=== PATIENT | male | born 1990 | race Two or more races ===

== ENCOUNTER 2019-04-06 08:01 | Inpatient (IN) | payer MEDICAID, OTHER ==
[~2019-04-06] VITALS: Ht 167.6 cm; Wt 102.8 kg
[2019-04-06 09:28] LABS: Basophils # (auto) 0.1 uL; Basophils % (auto) 0.4 % (0.0-2.0); Eosinophils # (auto) 0 uL; Hemoglobin 10.4 g/dL (13.5-17.5); Lymphocytes # (auto) 0.3 uL; Lymphocytes % (auto) 2.5 % (10.0-50.0); Mean Corpuscular Hemoglobin 33.3 pg (28.0-32.0); Mean Corpuscular Hgb Conc. 33.5 g/dL (32.0-36.0); Mean Corpuscular Volume 99.4 fL (80.0-100.0); Monocytes # (auto) 0.3 uL; Monocytes % (auto) 2.4 % (0.0-12.0); Neutrophils # (auto) 12.7 uL; Neutrophils % (auto) 94.7 % (37.0-80.0); Nucleated Red Blood Cells % 0.1 %; Platelet Count (auto) 271 10^3/uL (140-450); Red Blood Cells 3.11 10^6/uL (4.5-5.90); Red Cell Distribution Width 14.7 % (11.8-14.3); White Blood Cell 13.4 10^3/uL (4.4-10.8)
[2019-04-06] MEDS ORDERED: METOCLOPRAMIDE HCL 5MG/ml INJ 2ml VIAL ONE (09:37)
[2019-04-06] MEDS ORDERED: KETOROLAC TROMETH 30 MG/ML 1ML VIAL ONE (09:37)
[2019-04-06 09:38] LABS: Albumin 2.8 g/dL (3.4-5.0); Calcium 8.6 mg/dL (8.5-10.1); Potassium 4.2 mmol/L (3.5-5.1)
[2019-04-06 09:42] LABS: BUN/Creatinine Ratio 17.4; Bilirubin, Total 12.1 mg/dL (0.2-1.0); Total Protein 6.6 g/dL (6.4-8.2)
[2019-04-06] MEDS ORDERED: METOCLOPRAMIDE HCL 5MG/ml INJ 2ml VIAL IV ONE ×2 (09:45→10:45)
[2019-04-06] MEDS ORDERED: KETOROLAC TROMETH 30 MG/ML 1ML VIAL IV ONE (09:45)
[2019-04-06] MEDS ORDERED: SODIUM CHLORIDE 0.9% 1,000 ML IV ONE (10:41)
[2019-04-06] MEDS ORDERED: HYDROmorphone HCL 2 MG/ML VL IV ONE (10:45)
[2019-04-06 11:41] LABS: Urine Bacteria NONE SEEN /hpf (None Seen); Urine Blood Negative /uL (Negative); Urine Specific Gravity 1.018 (1.001-1.035); Urine WBC 1 /hpf (0 - 3)
[2019-04-06 11:42] LABS: INR 1.1 (0.9-1.15); Partial Thromboplastin Time 25.4 sec (23.78-33.04); Prothrombin Time 11.7 sec (9.27-12.13)
[2019-04-06] MEDS ORDERED: cefTRIAXone 1GM/50ML D5W 50 ML IV ONE (13:30)
[2019-04-06] MEDS ORDERED: LORazepam 0.5 MG TAB PO PRN (13:45)
[2019-04-06] MEDS ORDERED: PROMETHAZINE HCL 25 MG/ML 1ML IV PRN (13:45)
[2019-04-06] MEDS ORDERED: MORPHINE SULF INJ 2 MG/ML SYRINGE 1ML IV PRN ×2 (13:45→15:45)
[2019-04-06] MEDS ORDERED: MORPHINE SULFATE 4 MG/ML SYR/VIAL IV PRN (13:45)
[2019-04-06] MEDS ORDERED: NITROGLYCERIN 0.4 MG SL TAB SL PRN (13:45)
[2019-04-06] MEDS: FAMOTIDINE (10MG/ML) 2ML VL IV SCH (14:07)
[2019-04-06] MEDS: SODIUM CHLORIDE 0.9% 1,000 ML IV SCH ×2 (14:07→21:47)
[2019-04-06] MEDS: metroNIDAZOLE 500MG/100ML 100 ML IV SCH ×2 (14:38→21:47)
--- NOTE | 2019-04-06 15:30 | NUR ---
Telemetry admit from SHIREEN GARDNER admitted to tele unit. Verbal report received from JOSE JUAN Pham. Patient oriented to Rachel Olmedo RN primary RN, unit, room, bed, and unit policies regarding patient care and visiting hours. Patient now on continuous telemetry monitoring, tele box #[id number]. Telemetry reading on arrival to unit is NSR at 68. Patient on room air with saturation of 95%. Pt weighed by bedscale and encouraged to call if they need something. All questions and concerns addressed, patient verbalized understanding. IV patent, site clear, to right forearm. NPO status maintained. Abd is distended and firm. Pt is c/o abd pain. Pt denies nausea, no emesis.
--- NOTE | 2019-04-06 16:15 | NUR ---
Pt tearful, with c/o severe abd pain. Morphine 2mg given at this time. No other c/o pain or discomfort. No c/o nausea, no emesis. Resp even, unlabored.
[2019-04-06] MEDS ORDERED: FURO40TA4 PO (16:16)
[2019-04-06] MEDS ORDERED: LACT10SO3 PO (16:16)
[2019-04-06] MEDS ORDERED: SPIR50TA5 PO (16:16)
[2019-04-06] MEDS ORDERED: PRED5PAK PO (16:16)
[2019-04-06] MEDS: MORPHINE SULFATE 4 MG/ML SYR/VIAL IV PRN (16:17)
[2019-04-06 16:57] VITALS: BP 147/87
--- NOTE | 2019-04-06 18:00 | NUR ---
Pt resting quietly. No c/o pain or discomfort at this time. NPO status maintained.
[2019-04-06 18:42] LABS: Hemoglobin 10.6 g/dL (13.5-17.5)
--- NOTE | 2019-04-06 19:30 | NUR ---
Opening Shift Note Assumed care of patient, awake and alert X4. Family at bedside. Complaining of pain 6/10 to abdomen. Verbalized he will call when he wants pain meds. No S/S of distress/SOB. Instructed on POC and to call for assist PRN, will continue to monitor for changes Q1hr and PRN. Call light within reach
[2019-04-06 22:00] VITALS: BP 143/81
[2019-04-06] MEDS ORDERED: LORazepam 2MG/ML-1ML VIAL IV PRN (22:30)
[2019-04-07] MEDS: FAMOTIDINE (10MG/ML) 2ML VL IV SCH ×2 (01:45→13:45)
[2019-04-07 01:47] LABS: Hematocrit 28.8 % (41.0-53.0); Hemoglobin 9.7 g/dL (13.5-17.5)
[2019-04-07] MEDS: MORPHINE SULFATE 4 MG/ML SYR/VIAL IV PRN (04:33)
--- NOTE | 2019-04-07 04:41 | NUR ---
Paged hospitalist. Patient crying and moaning in pain. complains of 10/10 to abdomen. States " the morphine is barely taking any edge off. Continuing to monitor
--- NOTE | 2019-04-07 04:45 | NUR ---
Hospitalist Kahlil called. Was upset with me for calling him early, and said patient could wait 15 more minutes. Hardly listened to what i had to say and talked over me then stated he would look at the chart and hung up.Patient had already been in 10/10 pain for over an hour.
[2019-04-07] MEDS ORDERED: KETOROLAC TROMETH 30 MG/ML 1ML VIAL IV ONE (05:30)
--- NOTE | 2019-04-07 05:35 | NUR ---
Finally received an order for toradol 30mg x1. Will follow up with the patient. Continues to rub abdominal area and cry in pain.
[2019-04-07 05:43] VITALS: BP 140/78
[2019-04-07] MEDS: metroNIDAZOLE 500MG/100ML 100 ML IV SCH (05:46)
[2019-04-07] MEDS: SODIUM CHLORIDE 0.9% 1,000 ML IV SCH (06:22)
[2019-04-07 07:39] LABS: Basophils # (auto) 0 uL; Basophils % (auto) 0.2 % (0.0-2.0); Eosinophils # (auto) 0.2 uL; Eosinophils % (auto) 1.2 % (0.0-7.0); Hematocrit 32.8 % (41.0-53.0); Hemoglobin 10.8 g/dL (13.5-17.5); Lymphocytes # (auto) 0.6 uL; Lymphocytes % (auto) 4.4 % (10.0-50.0); Mean Corpuscular Hgb Conc. 32.9 g/dL (32.0-36.0); Mean Corpuscular Volume 100.5 fL (80.0-100.0); Monocytes # (auto) 0.6 uL; Monocytes % (auto) 4.2 % (0.0-12.0); Neutrophils # (auto) 12.5 uL; Platelet Count (auto) 258 10^3/uL (140-450); Red Blood Cells 3.26 10^6/uL (4.5-5.90); Red Cell Distribution Width 14.7 % (11.8-14.3); White Blood Cell 13.9 10^3/uL (4.4-10.8)
[2019-04-07 07:51] LABS: INR 1.18 (0.9-1.15); Prothrombin Time 12.5 sec (9.27-12.13)
[2019-04-07 07:58] LABS: Albumin 2.7 g/dL (3.4-5.0); Calcium 8.5 mg/dL (8.5-10.1); Potassium 3.5 mmol/L (3.5-5.1)
[2019-04-07 08:04] LABS: BUN/Creatinine Ratio 13.8; Bilirubin, Total 10.9 mg/dL (0.2-1.0); Total Protein 6.1 g/dL (6.4-8.2)
[2019-04-07] MEDS: cefTRIAXone 1GM/50ML D5W 50 ML IV SCH (09:24)
[2019-04-07 09:30] VITALS: BP 118/72
[2019-04-07 13:12] VITALS: BP 135/77
[2019-04-07 17:01] VITALS: BP 135/76
--- NOTE | 2019-04-07 17:07 | NUR ---
RESUMPTION OF CARE RECEIVED REPORT FROM JOSE JUAN PASCUAL FOR CONTINUATION OF CARE.
[2019-04-07] MEDS: DOXYCYCLINE 100MG/250ML 250 ML IV SCH (17:46)
--- NOTE | 2019-04-07 18:40 | NUR ---
END OF SHIFT PATIENT RESTING IN BED. NO S/S OF DISTRESS. INSTRUCTED PATIENT TO CALL PRN. BED IN LOWEST LOCKED POSITION, CALL LIGHT WITHIN REACH. ENDORSED CARE TO JOSE JUAN RIVAS.
[2019-04-08] MEDS: FAMOTIDINE (10MG/ML) 2ML VL IV SCH ×2 (01:34→13:34)
[2019-04-08] MEDS: DOXYCYCLINE 100MG/250ML 250 ML IV SCH (03:12)
[2019-04-08 05:36] LABS: Potassium 3.5 mmol/L (3.5-5.1)
[2019-04-08 05:45] LABS: Albumin 2.4 g/dL (3.4-5.0); BUN/Creatinine Ratio 16.1; Bilirubin, Total 10.5 mg/dL (0.2-1.0); Calcium 7.9 mg/dL (8.5-10.1); Total Protein 5.8 g/dL (6.4-8.2)
[2019-04-08 05:53] VITALS: BP 129/80
--- NOTE | 2019-04-08 07:45 | NUR ---
Opening Shift Note Assumed care of patient, patient sleeping. Will continue to monitor for changes Q1hr and PRN. Bed in lowest locked position, call light within reach.
[2019-04-08 09:00] VITALS: BP 130/66
[2019-04-08] MEDS: cefTRIAXone 1GM/50ML D5W 50 ML IV SCH (09:11)
--- NOTE | 2019-04-08 09:48 | NUR ---
PAIN MEDICATION PATIENT STATING MORPHINE DOES NOT WORK FOR HIM AND IS REQUESTING DILAUDID FOR WHEN HE HAS PAIN. PER DR. VITALE, PATIENT TO GET DILAUDID 0.5MG IV Q4H PRN. ORDERS READ BACK AND VERIFIED.
[2019-04-08] MEDS ORDERED: HYDROmorphone HCL 2 MG/ML VL IV PRN (10:00)
[2019-04-08] MEDS ORDERED: predniSONE 5 MG TAB PO SCH (10:00)
--- NOTE | 2019-04-08 12:00 | NUR ---
AT BEDSIDE DR. VITALE AT BEDSIDE DISCUSSING POC WITH PATIENT.
--- NOTE | 2019-04-08 12:02 | NUR ---
STOOL OCCULT BM SENT TO LAB FOR STOOL OCCULT PER ORDER.
[2019-04-08 12:12] VITALS: BP 130/66
[2019-04-08 13:00] VITALS: BP 157/87
--- NOTE | 2019-04-08 13:55 | NUR ---
DISCHARGE Discharge instructions given as ordered. Encourage to follow up with PMD as instructed. All questions and concerns addressed. Patient verbalized understanding. Medication reconciliation form completed and copy given to patient. IV removed with catheter intact, pressure dressing applied. Telemetry unit returned to [facility]. Patient ambulated to vehicle with all personal belongings, accompanied by staff and family member. No distress noted at time of departure.
== END 2019-04-08 13:55 | disposition home or self-care (01) | DRG 282 ==
LOC: EDBD 08:01 → ER 08:09 → TELE 13:45 → TELE-WESTW 15:30
PROVIDERS: ADMIT Internal Medicine; ATTEND Internal Medicine
DX: K85.90 Acute pancreatitis without necrosis or infection, unspecified (principal); N17.0 Acute kidney failure with tubular necrosis; E43 Unspecified severe protein-calorie malnutrition; J18.1 Lobar pneumonia, unspecified organism; D68.9 Coagulation defect, unspecified; E66.01 Morbid (severe) obesity due to excess calories; K70.11 Alcoholic hepatitis with ascites; K74.60 Unspecified cirrhosis of liver; I10 Essential (primary) hypertension; R73.9 Hyperglycemia, unspecified; D53.9 Nutritional anemia, unspecified; K80.20 Calculus of gallbladder without cholecystitis without obstruction; Z82.49 Family history of ischemic heart disease and other diseases of the circulatory system; Z86.61 Personal history of infections of the central nervous system; Z68.36 Body mass index [BMI] 36.0-36.9, adult
CPT/HCPCS: 36415; 71046; 74176; 76705; 80053; 81001; 82140; 82150; 82270; 83690; 83735; 85014; 85018; 85025; 85045; 85610; 85652; 85730; 87040; 87081; 93005; 96374; 96375; G0378; J0696; J1885; J3490

== ENCOUNTER 2019-08-01 08:10 | Inpatient (IN) | payer MEDICAID | END 2019-08-03 17:00 | disposition home or self-care (01) | LOC: ER 08:10 → OVERFLOW 08:11 → WEST WING 10:34 | DX: K85.90 Acute pancreatitis without necrosis or infection, unspecified (principal); E44.0 Moderate protein-calorie malnutrition; K70.31 Alcoholic cirrhosis of liver with ascites; N18.3 Chronic kidney disease, stage 3 (moderate); I12.9 Hypertensive chronic kidney disease with stage 1 through stage 4 chronic kidney disease, or unspecified chronic kidney disease ==

== ENCOUNTER 2019-08-09 09:50 | Emergency (ER) | payer MEDICAID ==
[~2019-08-09] VITALS: Ht 167.6 cm; Wt 83.9 kg
[~2019-08-09 09:50] MED LIST: FURO40TA4 PO; SPIR50TA5 PO
[2019-08-09 10:24] VITALS: BP 125/88
[2019-08-09 10:38] LABS: Basophils # (auto) 0.1 uL; Eosinophils # (auto) 0.1 uL; Hematocrit 36.6 % (41.0-53.0); Hemoglobin 12.2 g/dL (13.5-17.5); Neutrophils % (auto) 75.3 % (37.0-80.0)
[2019-08-09 10:43] LABS: Basophils % (auto) 0.7 % (0.0-2.0); Eosinophils % (auto) 0.7 % (0.0-7.0); Lymphocytes # (auto) 1.9 uL; Lymphocytes % (auto) 18.6 % (10.0-50.0); Mean Corpuscular Hemoglobin 29.6 pg (28.0-32.0); Mean Corpuscular Hgb Conc. 33.4 g/dL (32.0-36.0); Mean Corpuscular Volume 88.7 fL (80.0-100.0); Monocytes # (auto) 0.5 uL; Monocytes % (auto) 4.7 % (0.0-12.0); Neutrophils # (auto) 7.5 uL; Platelet Count (auto) 581 10^3/uL (140-450); Red Blood Cells 4.13 10^6/uL (4.5-5.90); Red Cell Distribution Width 13.7 % (11.8-14.3)
[2019-08-09 11:01] LABS: INR 1.06 (0.9-1.15); Partial Thromboplastin Time 31.1 sec (23.64-32.05)
[2019-08-09 11:04] LABS: Calcium 9.3 mg/dL (8.5-10.1); Potassium 4.4 mmol/L (3.5-5.1)
[2019-08-09 11:10] LABS: BUN/Creatinine Ratio 9.5; Bilirubin, Total 0.6 mg/dL (0.2-1.0); Total Protein 8.9 g/dL (6.4-8.2)
== END 2019-08-09 11:19 | disposition home or self-care (01) ==
LOC: ER 09:50
DX: K74.60 Unspecified cirrhosis of liver (principal)
CPT/HCPCS: 36415; 80053; 82150; 83690; 85025; 85610; 85730

== ENCOUNTER 2019-08-19 17:00 | Inpatient (IN) | payer MEDICAID ==
[~2019-08-19] VITALS: Ht 165.1 cm; Wt 90.0 kg
[2019-08-19] MEDS ORDERED: SODIUM CHLORIDE 0.9% 500 ML IVB ONE (17:30)
[2019-08-19] MEDS ORDERED: HYDROmorphone HCL 2 MG/ML VL IV ONE (17:30)
[2019-08-19] MEDS ORDERED: ONDANSETRON HCL 4 MG/2 ML VIAL IV ONE (17:30)
[2019-08-19 18:32] LABS: Basophils # (auto) 0.1 uL; Basophils % (auto) 1.2 % (0.0-2.0); Eosinophils # (auto) 0.1 uL; Eosinophils % (auto) 0.7 % (0.0-7.0); Hematocrit 34.4 % (41.0-53.0); Hemoglobin 11.6 g/dL (13.5-17.5); Lymphocytes # (auto) 2.5 uL; Lymphocytes % (auto) 21.9 % (10.0-50.0); Mean Corpuscular Hemoglobin 29.4 pg (28.0-32.0); Mean Corpuscular Hgb Conc. 33.9 g/dL (32.0-36.0); Mean Corpuscular Volume 86.7 fL (80.0-100.0); Monocytes # (auto) 0.5 uL; Monocytes % (auto) 4.7 % (0.0-12.0); Neutrophils # (auto) 8.1 uL; Neutrophils % (auto) 71.5 % (37.0-80.0); Platelet Count (auto) 568 10^3/uL (140-450); Red Blood Cells 3.96 10^6/uL (4.5-5.90); Red Cell Distribution Width 13.4 % (11.8-14.3); White Blood Cell 11.3 10^3/uL (4.4-10.8)
[2019-08-19 18:49] LABS: Albumin 4.3 g/dL (3.4-5.0); BUN/Creatinine Ratio 7.8; Calcium 9.6 mg/dL (8.5-10.1); Potassium 3.8 mmol/L (3.5-5.1)
[2019-08-19 18:52] LABS: Bilirubin, Total 0.6 mg/dL (0.2-1.0)
[2019-08-19] MEDS ORDERED: MORPHINE SULF INJ 2 MG/ML SYRINGE 1ML IV PRN (19:15)
[2019-08-19] MEDS ORDERED: NITROGLYCERIN 0.4 MG SL TAB SL PRN (19:15)
[2019-08-19 19:50] VITALS: BP 140/95
--- NOTE | 2019-08-19 19:50 | NUR ---
MS admit from SHIREEN GARD[facility] admitted to tele/MS after SBAR received. Patient oriented to Rosario ch RN, unit, room, bed, and unit policies regarding patient care and visiting hours. Patient weighed by bedscale and encouraged to call if they need something. All questions and concerns addressed, patient verbalized understanding. Note: Came per wheelchair awake alert oriented x 4, not in respiratory distress, placed in the bed comfortably, vital signs checked.
[2019-08-19] MEDS: SODIUM CHLORIDE 0.9% 1,000 ML IV SCH (20:11)
[2019-08-19] MEDS: FAMOTIDINE (10MG/ML) 2ML VL IV SCH (20:57)
[2019-08-19] MEDS: PROMETHAZINE HCL 25 MG/ML 1ML IV PRN (20:57)
[2019-08-19 21:13] LABS: Urine WBC None Seen /hpf (0 - 3)
[2019-08-19 21:36] LABS: Urine Bacteria NONE SEEN /hpf (None Seen); Urine Blood Negative /uL (Negative); Urine Hyaline Cast MOD /lpf (0 - 2); Urine Specific Gravity 1.027 (1.001-1.035)
[2019-08-19] MEDS ORDERED: SPIR100T4 PO (21:36)
[2019-08-19] MEDS ORDERED: PANT40TA2 PO (21:36)
[2019-08-19] MEDS ORDERED: BUME1TAB26 PO (21:36)
[2019-08-19 21:52] VITALS: BP 140/95
[2019-08-19] MEDS: HYDROmorphone HCL 2 MG/ML VL IV PRN (22:30)
--- NOTE | 2019-08-19 22:37 | NUR ---
Nose swab sent to lab. patient is discharged from the [facility] in less than 30 days, same problem.
[2019-08-20] MEDS: HYDROmorphone HCL 2 MG/ML VL IV PRN ×5 (03:32→22:37)
[2019-08-20] MEDS: SODIUM CHLORIDE 0.9% 1,000 ML IV SCH ×3 (03:33→19:34)
[2019-08-20 04:51] VITALS: BP 124/89
[2019-08-20 06:49] LABS: Albumin 3.5 g/dL (3.4-5.0); Potassium 4.1 mmol/L (3.5-5.1)
[2019-08-20 06:51] LABS: BUN/Creatinine Ratio 8.1; Basophils # (auto) 0.1 uL; Basophils % (auto) 0.9 % (0.0-2.0); Eosinophils # (auto) 0.1 uL; Eosinophils % (auto) 1.5 % (0.0-7.0); Hematocrit 30.7 % (41.0-53.0); Hemoglobin 10.5 g/dL (13.5-17.5); Lymphocytes % (auto) 29.6 % (10.0-50.0); Mean Corpuscular Hemoglobin 29.9 pg (28.0-32.0); Mean Corpuscular Hgb Conc. 34.4 g/dL (32.0-36.0); Mean Corpuscular Volume 86.8 fL (80.0-100.0); Monocytes # (auto) 0.4 uL; Monocytes % (auto) 6.1 % (0.0-12.0); Neutrophils # (auto) 4.3 uL; Neutrophils % (auto) 61.9 % (37.0-80.0); Nucleated Red Blood Cells % 0.1 %; Platelet Count (auto) 421 10^3/uL (140-450); Red Blood Cells 3.53 10^6/uL (4.5-5.90); Red Cell Distribution Width 13.8 % (11.8-14.3); White Blood Cell 6.9 10^3/uL (4.4-10.8)
[2019-08-20 06:53] LABS: Bilirubin, Total 0.5 mg/dL (0.2-1.0); Total Protein 7.3 g/dL (6.4-8.2)
--- NOTE | 2019-08-20 07:20 | NUR ---
Opening Shift Note Report received assumed care of patient, asleep, No S/S of distress/SOB or pain.will continue to monitor for changes Q1hr and PRN.
--- NOTE | 2019-08-20 07:39 | NUR ---
Report given to Becca Ferrara, patient is resting no resp. distress.
[2019-08-20 09:00] VITALS: BP 116/69
[2019-08-20] MEDS: FAMOTIDINE (10MG/ML) 2ML VL IV SCH ×2 (10:02→21:31)
[2019-08-20] MEDS: PROMETHAZINE HCL 25 MG/ML 1ML IV PRN ×2 (10:03→14:19)
--- NOTE | 2019-08-20 11:00 | NUR ---
FAMILY VISITING AT BEDSIDE
--- NOTE | 2019-08-20 11:15 | NUR ---
MD VISIT DR. BOO HERE TO SEE AND EXAMINED PATIENT,EXPLAIN DISEASE PROCESS AND PLAN OF CARE TO PATIENT ,EXPLAIN DISEASE PROCESS IN DETAIL TO PATIENT MOTHER.RECEIVED ORDERS.
[2019-08-20] MEDS ORDERED: LEVOFLOXACIN 500MG 100 ML IV ONE (11:30)
[2019-08-20] MEDS ORDERED: traMADol HCL 50 MG TAB PO PRN (11:30)
[2019-08-20 13:00] VITALS: BP 120/75
--- NOTE | 2019-08-20 15:20 | NUR ---
MD VISIT DR. STEWARD HERE TO SEE AND EXAMINED PATIENT RECEIVED ORDER,TO [facility] MEDICAL RECORDS FROM [facility]
--- NOTE | 2019-08-20 16:20 | NUR ---
FAXED REQUEST FOR MEDICAL RECORDS TO [facility]
[2019-08-20 17:00] VITALS: BP 119/76
--- NOTE | 2019-08-20 18:10 | NUR ---
REQUESTING TO INCREASE DILAUDID TO 2 MG IV,CALLED HOSPITALIST [facility],SPOKED TO ASHLEY PEREZ,RECEIVED ORDER,SEE ORDER WRITTEN FOR CHANGES OF PAIN MEDICATION.
--- NOTE | 2019-08-20 19:10 | NUR ---
REPORT GIVEN TO NOC SHIFT RN FOR CONTINUATION OF CARE STATUS UNCHANGED.
--- NOTE | 2019-08-20 19:25 | NUR ---
Opening Shift Note Assumed care of patient, awake and alert x 4. No S/S of distress/SOB. Bed is in lowest position and call light is within reach. Board updated. NS infusing at 125 mls/hr. Instructed on POC and to call for assist PRN, will continue to monitor for changes Q1hr and PRN.
[2019-08-20] MEDS: HYDROcodone-ACET 7.5/325MG TAB PO PRN (19:58)
[2019-08-20 22:00] VITALS: BP 120/70
--- NOTE | 2019-08-21 00:01 | NUR ---
Rosemarying hospitalist has noticeable ascites that he states is severely increased since he had 4 liters of fluid of taken out via paracentesis on Monday when he was a patient at [facility]. Fluid therapy stopped. Patient is currently NPO. Calling to notify of change in patient status and to see if he wants to provide any further orders.
--- NOTE | 2019-08-21 00:38 | NUR ---
Spoke to VALERIE Guillory. Continue fluid therapy. Order: Abdominal ultrasound.
[2019-08-21] MEDS: HYDROmorphone HCL 2 MG/ML VL IV PRN ×5 (03:15→21:00)
[2019-08-21] MEDS: SODIUM CHLORIDE 0.9% 1,000 ML IV SCH (03:15)
[2019-08-21 05:00] VITALS: BP 105/62
[2019-08-21 06:24] LABS: Basophils # (auto) 0.1 uL; Basophils % (auto) 0.8 % (0.0-2.0); Eosinophils # (auto) 0.1 uL; Hematocrit 30.9 % (41.0-53.0); Hemoglobin 10.6 g/dL (13.5-17.5); Lymphocytes # (auto) 1.9 uL; Lymphocytes % (auto) 27.2 % (10.0-50.0); Mean Corpuscular Hgb Conc. 34.2 g/dL (32.0-36.0); Mean Corpuscular Volume 87.8 fL (80.0-100.0); Monocytes # (auto) 0.6 uL; Monocytes % (auto) 8.5 % (0.0-12.0); Neutrophils # (auto) 4.4 uL; Neutrophils % (auto) 61.5 % (37.0-80.0); Platelet Count (auto) 372 10^3/uL (140-450); Red Blood Cells 3.52 10^6/uL (4.5-5.90); Red Cell Distribution Width 13.7 % (11.8-14.3); White Blood Cell 7.2 10^3/uL (4.4-10.8)
[2019-08-21 06:32] LABS: Potassium 4.2 mmol/L (3.5-5.1)
[2019-08-21 06:45] LABS: BUN/Creatinine Ratio 10.7; Bilirubin, Total 0.8 mg/dL (0.2-1.0); Calcium 8.4 mg/dL (8.5-10.1); Total Protein 6.7 g/dL (6.4-8.2)
[2019-08-21 09:00] VITALS: BP 120/70
[2019-08-21] MEDS: FAMOTIDINE (10MG/ML) 2ML VL IV SCH ×2 (09:16→20:57)
[2019-08-21] MEDS: LEVOFLOXACIN 500MG 100 ML IV SCH (09:17)
[2019-08-21] MEDS: HYDROcodone-ACET 7.5/325MG TAB PO PRN ×2 (09:17→15:06)
[2019-08-21] MEDS ORDERED: SODIUM CHLORIDE 0.9% 1,000 ML IV SCH (10:45)
[2019-08-21] MEDS: PROMETHAZINE HCL 25 MG/ML 1ML IV PRN (12:12)
--- NOTE | 2019-08-21 12:17 | NUR ---
IVF STOPPED PER DR GARNICA
[2019-08-21 13:07] VITALS: BP 130/86
[2019-08-21 17:30] VITALS: BP 113/70
[2019-08-21 22:00] VITALS: BP 123/90
[2019-08-22] MEDS: HYDROmorphone HCL 2 MG/ML VL IV PRN ×2 (02:29→11:45)
[2019-08-22] MEDS: HYDROcodone-ACET 7.5/325MG TAB PO PRN (04:48)
[2019-08-22 05:00] VITALS: BP 125/68
--- NOTE | 2019-08-22 06:04 | NUR ---
PT WANTING RX FOR HOME DILAUDID AND HOME NORCO.ASKED RN TO WRITE OUT PRESCRIPTIONS FOR HIM;INFORMED PATIENT THAT THAT WAS NOT LEGALLY POSSIBLE. SUGGESTED HE SPEAK WITH MD ABOUT HIS CONCERNS.
[2019-08-22 06:27] LABS: BUN/Creatinine Ratio 11.9; Calcium 8.7 mg/dL (8.5-10.1); Potassium 4.1 mmol/L (3.5-5.1)
--- NOTE | 2019-08-22 07:30 | NUR ---
Opening Shift Note Assumed care of patient, awake and alert. No S/S of distress/SOB or pain.Bed in lowest position, breaks locked, side rail up x2, call light with in reach. Instructed on POC and to call for assist PRN, will continue to monitor for changes Q1hr and PRN.
[2019-08-22 08:20] VITALS: BP 117/74
[2019-08-22 09:00] VITALS: BP 117/74
[2019-08-22] MEDS: FAMOTIDINE (10MG/ML) 2ML VL IV SCH (10:23)
[2019-08-22] MEDS: LEVOFLOXACIN 500MG 100 ML IV SCH (10:23)
--- NOTE | 2019-08-22 11:45 | NUR ---
PATIENT MEDICATED FOR PRIMARY RN PATIENT C/O 08/29 ABDOMINAL PAIN, PAIN MEDICATION GIVEN PER MD ORDERS.
[2019-08-22 12:59] VITALS: BP 120/75
[2019-08-22 13:00] VITALS: BP 120/75
--- NOTE | 2019-08-22 14:30 | NUR ---
Discharge instructions given as ordered. Encourage to follow up with PMD as instructed. All questions and concerns addressed. Patient verbalized understanding. Medication reconciliation form completed and copy given to patient. No home medications held in Pharmacy and none returned to patient, and no needed vaccines given. IV removed with catheter intact, pressure dressing applied. Patient ambulating independent to elevator with all personal belongings, accompanied by family member, steady gait noted. Patient declined assistance from staff . No distress noted at time of departure.
== END 2019-08-22 14:30 | disposition home or self-care (01) | DRG 282 ==
LOC: EDUNIT# 17:00 → EDBD 17:00 → ER 17:27 → CENTRAL 17:28
PROVIDERS: ADMIT Nurse Practitioner Acute Care; ATTEND Internal Medicine
DX: K85.90 Acute pancreatitis without necrosis or infection, unspecified (principal); N17.0 Acute kidney failure with tubular necrosis; R65.10 Systemic inflammatory response syndrome (SIRS) of non-infectious origin without acute organ dysfunction; K70.31 Alcoholic cirrhosis of liver with ascites; N18.3 Chronic kidney disease, stage 3 (moderate); K86.1 Other chronic pancreatitis; K86.3 Pseudocyst of pancreas; Z79.899 Other long term (current) drug therapy; E66.9 Obesity, unspecified; Z68.33 Body mass index [BMI] 33.0-33.9, adult; Z80.9 Family history of malignant neoplasm, unspecified; Z82.49 Family history of ischemic heart disease and other diseases of the circulatory system; Z53.20 Procedure and treatment not carried out because of patient's decision for unspecified reasons
CPT/HCPCS: 36415; 74176; 76705; 80048; 80053; 81001; 82150; 83690; 85025; 87081; 94761; 96361; 96365; 96375; G0378; J1956; J2405; J3490

== ENCOUNTER 2019-09-25 14:52 | Inpatient (IN) | payer MEDICAID ==
[~2019-09-25] VITALS: Ht 172.7 cm; Wt 80.1 kg
[~2019-09-25 14:52] MED LIST changes: +BUME1TAB26 PO; +PANT40TA2 PO; +SPIR100T4 PO
[2019-09-25] MEDS ORDERED: MORPHINE SULF INJ 2 MG/ML SYRINGE 1ML IV ONE (15:15)
[2019-09-25] MEDS: PROMETHAZINE HCL 25 MG/ML 1ML IV PRN (15:22)
[2019-09-25 15:26] LABS: Basophils # (auto) 0.1 uL; Eosinophils # (auto) 0.1 uL; Nucleated Red Blood Cells % 0.1 %
[2019-09-25 15:28] LABS: Basophils % (auto) 0.4 % (0.0-2.0); Eosinophils % (auto) 0.3 % (0.0-7.0); Hematocrit 38.3 % (41.0-53.0); Hemoglobin 12.5 g/dL (13.5-17.5); Lymphocytes # (auto) 5.3 uL; Lymphocytes % (auto) 25.2 % (10.0-50.0); Mean Corpuscular Hemoglobin 28.3 pg (28.0-32.0); Mean Corpuscular Hgb Conc. 32.7 g/dL (32.0-36.0); Mean Corpuscular Volume 86.6 fL (80.0-100.0); Monocytes % (auto) 4.7 % (0.0-12.0); Neutrophils # (auto) 14.6 uL; Neutrophils % (auto) 69.4 % (37.0-80.0); Platelet Count (auto) 695 10^3/uL (140-450); Red Blood Cells 4.43 10^6/uL (4.5-5.90); Red Cell Distribution Width 13.8 % (11.8-14.3)
[2019-09-25 15:45] LABS: Albumin 2.7 g/dL (3.4-5.0); Calcium 8.5 mg/dL (8.5-10.1); INR 1.1 (0.9-1.15); Magnesium 2.1 mg/dL (1.6-2.6); Partial Thromboplastin Time 29.5 sec (23.64-32.05); Potassium 3.9 mmol/L (3.5-5.1)
[2019-09-25 15:50] LABS: BUN/Creatinine Ratio 11.7; Bilirubin, Total 0.5 mg/dL (0.2-1.0); Total Protein 8.1 g/dL (6.4-8.2)
[2019-09-25] MEDS ORDERED: HYDROmorphone HCL 2 MG/ML VL IV ONE ×2 (16:00→19:00)
[2019-09-25] MEDS ORDERED: cefTRIAXone 1GM/50ML D5W 50 ML IV ONE (17:30)
[2019-09-25] MEDS ORDERED: ACETAMINOPHEN 325 MG TAB PO PRN (21:00)
[2019-09-25] MEDS ORDERED: LEVOFLOXACIN 500MG 100 ML IV ONE (21:00)
[2019-09-25] MEDS: SODIUM CHLORIDE 0.9% 1,000 ML IV SCH (22:32)
[2019-09-25 22:40] VITALS: BP 151/81
--- NOTE | 2019-09-25 22:40 | NUR ---
MS admit from SHIRE[facility] GARD[facility] admitted to tele/MS after SBAR received. Patient oriented to JOSE A VILLARREAL, RN primary RN, unit, room, bed, and unit policies regarding patient care and visiting hours. Patient weighed by bedscale and encouraged to call if they need something. All questions and concerns addressed, patient verbalized understanding. Patient complain of pain will administer prn medication.
[2019-09-25] MEDS: MORPHINE SULFATE 4 MG/ML SYR/VIAL IV PRN (23:23)
[2019-09-25] MEDS: TEMAZEPAM 15 MG CAP PO PRN (23:23)
[2019-09-25] MEDS: ONDANSETRON HCL 4 MG/2 ML VIAL IV PRN (23:58)
[2019-09-26] MEDS ORDERED: MULTTAB PO
[2019-09-26] MEDS ORDERED: FURO1TAB31 PO
[2019-09-26] MEDS ORDERED: TRAM50TA2 PO
[2019-09-26] MEDS ORDERED: SPIR100T4 PO
[2019-09-26] MEDS ORDERED: SIME80CH6 PO
[2019-09-26] MEDS ORDERED: FAM20T PO
[2019-09-26] MEDS ORDERED: AMIL5TAB PO
[2019-09-26] MEDS ORDERED: CIPR-173 PO
[2019-09-26] MEDS ORDERED: ONDA-144 PO
[2019-09-26] MEDS ORDERED: LANS15CA21 PO
[2019-09-26] MEDS ORDERED: THIA100T5 PO
[2019-09-26] MEDS ORDERED: LACT10SO60 PO
[2019-09-26] MEDS ORDERED: PANC12002 PO
[2019-09-26] MEDS ORDERED: PANT1INJ3 PO
[2019-09-26] MEDS ORDERED: SULF-92 PO
[2019-09-26] MEDS ORDERED: KETOROLAC TROMETH 30 MG/ML 1ML VIAL IV ONE (01:00)
[2019-09-26 05:00] VITALS: BP 114/69
[2019-09-26] MEDS: ONDANSETRON HCL 4 MG/2 ML VIAL IV PRN ×3 (05:30→21:39)
[2019-09-26 06:49] LABS: Basophils # (auto) 0 uL; Basophils % (auto) 0.5 % (0.0-2.0); Eosinophils # (auto) 0.1 uL; Eosinophils % (auto) 0.8 % (0.0-7.0); Hematocrit 32.4 % (41.0-53.0); Hemoglobin 11.1 g/dL (13.5-17.5); Lymphocytes # (auto) 1.9 uL; Lymphocytes % (auto) 18.1 % (10.0-50.0); Mean Corpuscular Hemoglobin 29.6 pg (28.0-32.0); Mean Corpuscular Hgb Conc. 34.2 g/dL (32.0-36.0); Mean Corpuscular Volume 86.5 fL (80.0-100.0); Monocytes # (auto) 0.6 uL; Monocytes % (auto) 5.6 % (0.0-12.0); Nucleated Red Blood Cells % 0.2 %; Platelet Count (auto) 421 10^3/uL (140-450); Red Blood Cells 3.74 10^6/uL (4.5-5.90); Red Cell Distribution Width 13.4 % (11.8-14.3); White Blood Cell 10.6 10^3/uL (4.4-10.8)
[2019-09-26 07:08] LABS: Albumin 2.2 g/dL (3.4-5.0); Calcium 8.4 mg/dL (8.5-10.1); Potassium 4.5 mmol/L (3.5-5.1)
[2019-09-26 07:17] LABS: BUN/Creatinine Ratio 13.4; Bilirubin, Total 0.6 mg/dL (0.2-1.0); Total Protein 7.1 g/dL (6.4-8.2)
[2019-09-26 08:00] VITALS: BP 151/81
[2019-09-26 09:00] VITALS: BP 113/75
[2019-09-26] MEDS: SODIUM CHLORIDE 0.9% 1,000 ML IV SCH (09:30)
[2019-09-26] MEDS: MORPHINE SULFATE 4 MG/ML SYR/VIAL IV PRN (09:46)
--- NOTE | 2019-09-26 10:56 | NUR ---
PATIENT SITTING ON THE FLOOR IN THE BATHROOM. SAID HE CAN'T WALK BACK TO THE BED. PHYSICAL THERAPY CAME TO ROOM TO ASSIST PATIENT BACK TO BED. PATIENT STOOD UP WALKED BACK TO THE BED ON HIS OWN. HE STATES HE WANTS DILAUDID. THAT'S THE ONLY MEDICATION THAT HELPS HIM.
[2019-09-26] MEDS ORDERED: LACTATED RINGER'S 1,000 ML IV SCH (11:15)
[2019-09-26] MEDS: HYDROmorphone HCL 2 MG/ML VL IV PRN ×7 (11:24→23:52)
[2019-09-26] MEDS: PROMETHAZINE HCL 25 MG/ML 1ML IV PRN ×4 (11:54→23:52)
[2019-09-26 13:00] VITALS: BP 128/88
[2019-09-26] MEDS: LACTATED RINGER'S 1,000 ML IV SCH ×2 (13:07→17:32)
[2019-09-26 17:00] VITALS: BP 118/76
--- NOTE | 2019-09-26 20:20 | NUR ---
RECEIVE IN BED IS ALERT ORIENTATED IS REQUIRING ANALGESIC [id number]
[2019-09-26] MEDS: LEVOFLOXACIN 500MG 100 ML IV SCH (20:50)
[2019-09-26 22:39] VITALS: BP 131/78
[2019-09-27] MEDS: HYDROmorphone HCL 2 MG/ML VL IV PRN ×7 (04:21→21:21)
[2019-09-27] MEDS: LACTATED RINGER'S 1,000 ML IV SCH ×3 (04:22→15:17)
[2019-09-27] MEDS: PROMETHAZINE HCL 25 MG/ML 1ML IV PRN ×2 (04:22→21:22)
[2019-09-27 05:58] VITALS: BP 110/66
[2019-09-27 07:41] LABS: Calcium 7.8 mg/dL (8.5-10.1); Potassium 4.2 mmol/L (3.5-5.1)
[2019-09-27 07:43] LABS: BUN/Creatinine Ratio 16.2
[2019-09-27 08:00] VITALS: BP 110/63
[2019-09-27 09:00] VITALS: BP 110/63
[2019-09-27] MEDS ORDERED: BUME1TAB28 PO (09:57)
--- NOTE | 2019-09-27 09:57 | NUR ---
Med rec home meds [facility] with patient and [facility]
[2019-09-27 13:00] VITALS: BP 110/71
--- NOTE | 2019-09-27 14:16 | NUR ---
DR. STEWARD WAS IN TO SEE PT AND MD LEFT NEW ORDERS. PT'S AND KIDS WERE VISITING AT THE TIME.
--- NOTE | 2019-09-27 16:10 | NUR ---
PT MOVED FROM 298 A TO RM 298 B PER BED IN A STABLE CONDITION.
[2019-09-27 17:00] VITALS: BP 118/79
[2019-09-27] MEDS: ONDANSETRON HCL 4 MG/2 ML VIAL IV PRN (18:09)
--- NOTE | 2019-09-27 18:45 | NUR ---
PT SITTING IN BED COMFORTABLY AT THIS TIME. NO C/O NAUSEA AND PT'S PAIN LESS THAN BEFORE 05/29 AND PT STATED THAT THE PAIN MED JUST TAKE THE EDGE OUT OF THE PAIN BUT IS ALWAYS THERE. PT'S BROTHER VISITING AT THIS TIME.
--- NOTE | 2019-09-27 20:20 | NUR ---
RECEIVE IN BEDIS NPO STATES HE STILL HAVE LOTS OF PAIN
[2019-09-27] MEDS: LEVOFLOXACIN 500MG 100 ML IV SCH (21:20)
[2019-09-27 22:00] VITALS: BP 115/67
[2019-09-28] MEDS: LACTATED RINGER'S 1,000 ML IV SCH ×2 (00:32→12:17)
[2019-09-28] MEDS: HYDROmorphone HCL 2 MG/ML VL IV PRN ×9 (00:50→22:25)
[2019-09-28 05:49] LABS: Basophils # (auto) 0 uL; Basophils % (auto) 0.6 % (0.0-2.0); Hemoglobin 8.1 g/dL (13.5-17.5); Lymphocytes # (auto) 1.3 uL; Monocytes # (auto) 0.6 uL; Nucleated Red Blood Cells % 0.1 %
[2019-09-28 05:51] LABS: Eosinophils # (auto) 0 uL; Eosinophils % (auto) 0.7 % (0.0-7.0); Hematocrit 23.7 % (41.0-53.0); Lymphocytes % (auto) 19.9 % (10.0-50.0); Mean Corpuscular Hemoglobin 29.6 pg (28.0-32.0); Mean Corpuscular Hgb Conc. 34.2 g/dL (32.0-36.0); Mean Corpuscular Volume 86.6 fL (80.0-100.0); Monocytes % (auto) 9.3 % (0.0-12.0); Neutrophils # (auto) 4.5 uL; Neutrophils % (auto) 69.5 % (37.0-80.0); Platelet Count (auto) 278 10^3/uL (140-450); Red Blood Cells 2.74 10^6/uL (4.5-5.90); Red Cell Distribution Width 13.2 % (11.8-14.3); White Blood Cell 6.5 10^3/uL (4.4-10.8)
[2019-09-28 05:54] VITALS: BP 109/58
[2019-09-28 06:08] LABS: Calcium 7.6 mg/dL (8.5-10.1); Potassium 3.7 mmol/L (3.5-5.1)
[2019-09-28 06:14] LABS: BUN/Creatinine Ratio 15.9
--- NOTE | 2019-09-28 07:30 | NUR ---
Opening Shift Note Assumed care of patient, resting comfortably. No S/S of distress/SOB or pain on room air. Instructed on POC and to call for assist PRN, will continue to monitor for changes Q1hr and PRN. Bed in low and locked position, rails up x2, no-slip socks on.
[2019-09-28 09:15] VITALS: BP 120/69
[2019-09-28] MEDS: ONDANSETRON HCL 4 MG/2 ML VIAL IV PRN ×4 (09:56→22:26)
--- NOTE | 2019-09-28 11:35 | NUR ---
DR STEWARD AT BEDSIDE DECREASED LR RATE TO 60ML/H, PENDING PARACENTESIS ON MONDAY.
--- NOTE | 2019-09-28 11:57 | NUR ---
Nutrition Assessment Notes please see attached link for complete assessment Est. Needs BW 78 [id number] kcal (23-25 kcal/kgBW), 78-93 gms pro (1.0-1.2 gms/kgBW r/t severe hypoalb). Will continue to monitor pertinent labs and reassess nutrient need prn Addendum: 09/28/19 at [address] Amended: Links added.
[2019-09-28] MEDS: PROMETHAZINE HCL 25 MG/ML 1ML IV PRN ×3 (12:14→20:22)
[2019-09-28 13:51] VITALS: BP 127/87
--- NOTE | 2019-09-28 16:30 | NUR ---
PAIN REASSESSMENT PATIENT STATES THAT THE PAIN MEDICATION HELPS BUT ONLY FOR ONE HOUR AND THAT HE STILL FEELS HE NEEDS IT EVERY 2 HOURS.
[2019-09-28 17:12] VITALS: BP 119/81
--- NOTE | 2019-09-28 19:00 | NUR ---
Opening Shift Note Assumed care of patient, awake and alert.Family on bedside. No S/S of distress/SOB or pain. Instructed on POC and to call for assist PRN, will continue to monitor for changes Q1hr and PRN.
[2019-09-28] MEDS ORDERED: CEFOTAXIME SODIUM 1 GM in D5W 5% 50 ML IV ONE (20:00)
[2019-09-28] MEDS: LEVOFLOXACIN 500MG 100 ML IV SCH (21:21)
[2019-09-28 22:00] VITALS: BP 112/65
[2019-09-28] MEDS ORDERED: cefTAZidime 1 GM VL ONE (23:17)
[2019-09-28] MEDS: cefTAZidime 1 GM in SODIUM CHL 0.9% 50 ML IV SCH (23:31)
[2019-09-29] MEDS: HYDROmorphone HCL 2 MG/ML VL IV PRN ×12 (00:26→23:40)
[2019-09-29] MEDS: PROMETHAZINE HCL 25 MG/ML 1ML IV PRN ×6 (00:27→21:40)
[2019-09-29] MEDS: ONDANSETRON HCL 4 MG/2 ML VIAL IV PRN ×6 (02:32→23:40)
[2019-09-29] MEDS: LACTATED RINGER'S 1,000 ML IV SCH ×2 (04:25→21:03)
[2019-09-29 05:56] VITALS: BP 116/61
[2019-09-29] MEDS ORDERED: CEFOTAXIME SODIUM 1 GM in D5W 5% 50 ML IV SCH (06:00)
[2019-09-29 06:47] LABS: Potassium 3.5 mmol/L (3.5-5.1)
[2019-09-29 06:51] LABS: INR 1.23 (0.9-1.15); Partial Thromboplastin Time 34.4 sec (23.64-32.05)
[2019-09-29 06:54] LABS: Albumin 1.7 g/dL (3.4-5.0); BUN/Creatinine Ratio 14.5; Bilirubin, Total 0.8 mg/dL (0.2-1.0); Magnesium 1.6 mg/dL (1.6-2.6); Phosphorus 3.8 mg/dL (2.5-4.90)
[2019-09-29 07:00] LABS: Basophils # (auto) 0 uL; Basophils % (auto) 0.4 % (0.0-2.0); Eosinophils # (auto) 0 uL; Eosinophils % (auto) 0.4 % (0.0-7.0); Hemoglobin 8.7 g/dL (13.5-17.5); Lymphocytes % (auto) 14.8 % (10.0-50.0); Mean Corpuscular Hemoglobin 29.1 pg (28.0-32.0); Mean Corpuscular Hgb Conc. 33.6 g/dL (32.0-36.0); Mean Corpuscular Volume 86.7 fL (80.0-100.0); Monocytes # (auto) 0.7 uL; Monocytes % (auto) 11.3 % (0.0-12.0); Neutrophils # (auto) 4.7 uL; Neutrophils % (auto) 73.1 % (37.0-80.0); Platelet Count (auto) 292 10^3/uL (140-450); Red Cell Distribution Width 13.2 % (11.8-14.3); White Blood Cell 6.5 10^3/uL (4.4-10.8)
--- NOTE | 2019-09-29 07:30 | NUR ---
Opening Shift Note Assumed care of patient, awake and alert. No S/S of distress/SOB on room air but complains of pain, will medicate as ordered. Instructed on POC and to call for assist PRN, will continue to monitor for changes Q1hr and PRN. Bed in low and locked position, rails up x2, no-slip socks on.
[2019-09-29 09:00] VITALS: BP 105/62
[2019-09-29] MEDS: cefTAZidime 1 GM in SODIUM CHL 0.9% 50 ML IV SCH ×2 (10:49→22:59)
[2019-09-29 13:00] VITALS: BP 117/68
--- NOTE | 2019-09-29 14:29 | NUR ---
PATIENT REQUESTING TO GO OFF UNIT TO AMBULATE WITH HIS BROTHER, INFORMED THAT HE IS ALLOWED TO AMBULATE UPSTAIRS BUT HE HAS TO SIGN AN AMA TO GO DOWNSTAIRS WHERE HE CANNOT BE MONITORED. PATIENT INFORMED OF RISKS OF LEAVING THE UNIT, INSTRUCTED TO RETURN NO LONGER THAN 20 MINUTES, PATIENT VERBALIZES UNDERSTANDING.
[2019-09-29 16:39] VITALS: BP 113/70
--- NOTE | 2019-09-29 19:25 | NUR ---
Opening Shift Note Assumed care of patient, awake and alert. No S/S of distress/SOB. The patient c/o severe 9/10 abdominal pain. Will treat with PRN pain medication. Instructed on POC and to call for assist PRN, will continue to monitor for changes Q1hr and PRN.
[2019-09-29] MEDS: LEVOFLOXACIN 500MG 100 ML IV SCH (21:03)
[2019-09-29 22:00] VITALS: BP 106/59
[2019-09-30] VITALS (14 sets, daily range): BP systolic 97–118; BP diastolic 53–75
[2019-09-30] MEDS: PROMETHAZINE HCL 25 MG/ML 1ML IV PRN ×5 (01:40→20:43)
[2019-09-30] MEDS: HYDROmorphone HCL 2 MG/ML VL IV PRN ×10 (01:40→23:07)
[2019-09-30] MEDS: ONDANSETRON HCL 4 MG/2 ML VIAL IV PRN ×5 (03:40→23:07)
[2019-09-30 05:53] LABS: Basophils # (auto) 0 uL; Basophils % (auto) 0.3 % (0.0-2.0); Eosinophils # (auto) 0 uL; Eosinophils % (auto) 0.5 % (0.0-7.0); Hematocrit 24.9 % (41.0-53.0); Hemoglobin 8.5 g/dL (13.5-17.5); Lymphocytes # (auto) 1.2 uL; Lymphocytes % (auto) 18.3 % (10.0-50.0); Mean Corpuscular Hemoglobin 29.6 pg (28.0-32.0); Mean Corpuscular Hgb Conc. 34.3 g/dL (32.0-36.0); Mean Corpuscular Volume 86.3 fL (80.0-100.0); Monocytes # (auto) 0.8 uL; Monocytes % (auto) 12.6 % (0.0-12.0); Neutrophils # (auto) 4.3 uL; Neutrophils % (auto) 68.3 % (37.0-80.0); Nucleated Red Blood Cells % 0.1 %; Platelet Count (auto) 273 10^3/uL (140-450); Red Blood Cells 2.88 10^6/uL (4.5-5.90); Red Cell Distribution Width 13.5 % (11.8-14.3); White Blood Cell 6.3 10^3/uL (4.4-10.8)
[2019-09-30 06:00] LABS: Albumin 1.6 g/dL (3.4-5.0); Calcium 7.4 mg/dL (8.5-10.1); Magnesium 1.6 mg/dL (1.6-2.6); Potassium 3.6 mmol/L (3.5-5.1)
[2019-09-30 06:05] LABS: BUN/Creatinine Ratio 13.8; Bilirubin, Total 0.7 mg/dL (0.2-1.0); Phosphorus 3.6 mg/dL (2.5-4.90); Total Protein 5.9 g/dL (6.4-8.2)
--- NOTE | 2019-09-30 07:33 | NUR ---
Opening Shift Note Assumed care of patient, awake and alert. No S/S of distress/SOB. Patient rated pain at a 9/10. Bed in lowest and locked position with side rails up x2 and call light in reach. Instructed on POC and to call for assist PRN, will continue to monitor for changes Q1hr and PRN.
[2019-09-30] MEDS: cefTAZidime 1 GM in SODIUM CHL 0.9% 50 ML IV SCH ×2 (10:11→23:07)
--- NOTE | 2019-09-30 11:00 | NUR ---
PARACENTESIS PERFORMED PER DR SALMON IN [place] [facility] - SEE FLOW SHEET FOR VS. PAT AMARILIS PROCEDURE WELL WITHOUT C/O PAIN OR DIZZINESS. CATHETER REMOVED FROM RLQ, MILD MANUAL PRESSURE APPLIED - SM AMT RED OLENA NOTED -LG STERILE BANDAID APPLIED. 5150 ML YELLOW LIQ REMOVED FROM PATIENT - NO FLUID TESTING NEEDED. PROCEDURE STARTED AT 1100 AND CONCLUDED AT 1143. PATIENT RETURNED TO ROOM PER IN STABLE CONDITION.
[2019-09-30] MEDS: LACTATED RINGER'S 1,000 ML IV SCH (13:45)
--- NOTE | 2019-09-30 14:50 | NUR ---
Nutrition Follow-up Notes Wt.: 79.2 kg as of yesterday. Pt's asleep, no immediate family member at bedside during rounds this morning. Pt's no signs of distress noted earlier, noted pt's s/p Paracentesis, remains NPO, no diet order yet at this time. Est. Needs BW 78 [id number] kcal (23-25 kcal/kgBW), 78-93 gms pro (1.0-1.2 gms/kgBW r/t severe hypoalb). Will continue to monitor pertinent labs and reassess nutrient need prn Labs: Na 135 L, Ca 7.4 L, ALT 15 L, ALP 1296 H, Tpro 5.9 L, Alb 2.2 L; Amylase/Lipase 290/885 H Skin: Junito scale 19, low risk, skin intact per endodontic assistant. GI: Pt had 1 BM yesterday per endodontic assistant. PES: Increased nutrient needs r/t altered GI functions aeb cirrhosis, pancreatitis, abdominal pain, severe hypoalbuminemia, NPO. Altered nutrition related lab values r/t current/chronic medical condition aeb elev BUN pancreatic enzymes and hypocalcemia, svere hypoalb Will continue to monitor NPO status, skin status, pertinent labs and weight trend. F/u in 2 to 3 days. Rec.: 1.) If still NPO with Albumin, Prealbumin continue trending down, consider PN support if medically appropriate. 2.) Advance gradually to oral diet when medically appropriate. 3.) Refer pt to CDE/RD for further nutrition education and weight monitoring upon discharge. 4.) Continue current plan of care.
[2019-09-30] MEDS ORDERED: MAGNESIUM SULFATE 1GM/100ML 100 ML IV ONE (15:00)
--- NOTE | 2019-09-30 19:26 | NUR ---
Opening Shift Note Assumed care of patient, awake and alert x 4. No S/S of distress/SOB. Bed is in lowest position and locked. Call light within reach. LR infusing at 60 mls/hr. Instructed on POC and to call for assist PRN, will continue to monitor for changes Q1hr and PRN.
[2019-09-30] MEDS: LEVOFLOXACIN 500MG 100 ML IV SCH (20:50)
[2019-10-01] MEDS: HYDROmorphone HCL 2 MG/ML VL IV PRN ×11 (01:46→22:27)
[2019-10-01] MEDS: PROMETHAZINE HCL 25 MG/ML 1ML IV PRN ×6 (01:46→22:27)
[2019-10-01] MEDS: ONDANSETRON HCL 4 MG/2 ML VIAL IV PRN ×5 (03:50→20:27)
--- NOTE | 2019-10-01 04:00 | NUR ---
IV removed. New IV placed. IV to left forearm found to be infiltrated. IV catheter removed with catheter intact. Site covered with gauze and wrapped with Coban. 22 gauge catheter inserted into left forearm after one attempt. IV secured with tegaderm. Patient tolerated well.
[2019-10-01 05:20] VITALS: BP 122/59
--- NOTE | 2019-10-01 05:28 | NUR ---
Paging hospitalist to notify that patient is reporting sever abdominal pain, 10 out of 10, the worse pain he has felt since being admitted. He has been having severe pain, 8 out of 10, before that was made tolerable by Dilaudid 1.5 mg IV q 2 hrs. The most recent Dilaudid at 0350 did not seem to help patient's new pain. Patient has some increased abdominal distension with tenderness. Abdomen is not firm but there is a noticeable umbical hernia with some purple discoloration in the navel. Patient's vital signs are all WNL. Patient admitted for acute on chronic pancreatitis related to cirrhosis r/t alcohol abuse and peripancreatic fluid and cyst. Patient has had severe ascites and patient had paracentesis yesterday where 5150 ccs were removed. Addendum: 10/01/19 at 0554 by KATHERIN CASTAÑEDA RN Patient has recently started vomiting approximately 100cc of green bile within the last hour. Patient states that discoloration around navel has been there for one week.
[2019-10-01] MEDS: LACTATED RINGER'S 1,000 ML IV SCH ×2 (05:45→16:16)
[2019-10-01] MEDS ORDERED: HYDROmorphone HCL 2 MG/ML VL IV ONE (06:15)
--- NOTE | 2019-10-01 07:45 | NUR ---
OPENING NOTE OBSERVED PT SITTING UP ON SIDE OF BED. PT DENIES CHEST PAIN/SOB. C/O 10/10 GENERALIZED ABDOMINAL PAIN AND NAUSEA. WILL MEDICATE ACCORDING TO MD ORDER. PT UPDATED ON POC; VERBALIZED UNDERSTANDING. ENCOURAGED PT TO CONTACT STAFF FOR PRN ASSISTANCE. CALL LIGHT WITHIN REACH, FALL PRECAUTIONS IN PLACE. WILL CONTINUE TO MONITOR Q1H AND PRN. CONTINUE PT CARE.
[2019-10-01 09:00] VITALS: BP 120/73
[2019-10-01] MEDS: cefTAZidime 1 GM in SODIUM CHL 0.9% 50 ML IV SCH ×2 (10:06→22:26)
[2019-10-01 13:00] VITALS: BP 123/74
--- NOTE | 2019-10-01 13:09 | NUR ---
AT BEDSIDE DR. ENRIQUEZ AT BEDSIDE DISCUSSING POC WITH PT. ORDERS RECEIVED FOR CLEAR LIQUID DIET. SPOKE TO MD REGARDING DISCOLORATION/PURPLE AREA ON UMBILICAL HERNIA. MD AWARE. NO NEW ORDERS RECEIVED.
--- NOTE | 2019-10-01 14:20 | NUR ---
STATUS PATIENT DENIES WORSENING OF SYMPTOMS OF NAUSEA AFTER CLEAR LIQUID DIET STARTED. NO VOMITING AT THIS TIME. WILL CONTINUE TO MONITOR.
[2019-10-01 17:00] VITALS: BP 117/71
--- NOTE | 2019-10-01 18:28 | NUR ---
IV insertion IV access obtained, via clean sterile technique by inserting 22 gauge catheter at VJ after 1 attempt. IV secured properly. No trauma to site. Patient tolerated well. NOTE: IV to RFA removed, catheter intact, pressure dressing applied.
--- NOTE | 2019-10-01 19:26 | NUR ---
Opening Shift Note Assumed care of patient, awake and alert x 4. No S/S of distress/SOB. Bed is in lowest position and locked. Call light within reach. Board updated. LR infusing at ordered rate. Instructed on POC and to call for assist PRN, will continue to monitor for changes Q1hr and PRN.
[2019-10-01] MEDS: LEVOFLOXACIN 500MG 100 ML IV SCH (20:42)
[2019-10-01 22:00] VITALS: BP 113/64
[2019-10-02] MEDS: ONDANSETRON HCL 4 MG/2 ML VIAL IV PRN ×4 (00:30→19:56)
[2019-10-02] MEDS: HYDROmorphone HCL 2 MG/ML VL IV PRN ×10 (00:30→22:18)
[2019-10-02] MEDS: PROMETHAZINE HCL 25 MG/ML 1ML IV PRN ×6 (00:30→22:11)
[2019-10-02 05:46] LABS: BUN/Creatinine Ratio 11.6; Calcium 7.3 mg/dL (8.5-10.1); Magnesium 1.6 mg/dL (1.6-2.6); Potassium 3.1 mmol/L (3.5-5.1)
[2019-10-02 06:29] VITALS: BP 106/56
--- NOTE | 2019-10-02 07:45 | NUR ---
Opening Shift Note Received report on the patient. Awake and sitting up in bed. Patient shows no signs of distress at this time. Discussed plan of care with the patient. Bed in lowest position, side rails up x2, and the call light is within reach. Will continue to monitor.
[2019-10-02 08:24] VITALS: BP 100/73
[2019-10-02] MEDS: cefTAZidime 1 GM in SODIUM CHL 0.9% 50 ML IV SCH (10:02)
[2019-10-02 12:36] VITALS: BP 107/68
[2019-10-02] MEDS ORDERED: MAGNESIUM SULFATE 1GM/100ML 100 ML IV ONE (13:00)
[2019-10-02] MEDS ORDERED: POTASSIUM CHL 20 Meq TABLET PO ONE (13:00)
--- NOTE | 2019-10-02 14:42 | NUR ---
Nutrition Follow-up Notes Wt.: 78.0 kg Pt's asleep, no immediate family member at bedside during rounds this morning. Pt's no signs of distress noted earlier, currently on [facility] soft diet with fair PO of avg 60% x 4 per RN doc Est. Needs BW 78 [id number] kcal (23-25 kcal/kgBW), 78-93 gms pro (1.0-1.2 gms/kgBW r/t severe hypoalb). Will continue to monitor pertinent labs and reassess nutrient need prn Labs: CA 7.3 L, ALB 1.6 L. rest lab wnl for today Skin: Junito scale 20, low risk, skin intact per closer on. GI: Pt had 1 BM today per closer on. PES: Partially resolved: Increased nutrient needs r/t altered GI functions aeb cirrhosis, pancreatitis, abdominal pain, severe hypoalbuminemia, NPO. Altered nutrition related lab values r/t current/chronic medical condition aeb elev BUN pancreatic enzymes and hypocalcemia, svere hypoalb Will continue to monitor PO intake, skin status, pertinent labs and weight trend. F/u in 3-5 days. Rec.: 1.) Refer pt to CDE/RD for further nutrition education and weight monitoring upon discharge. 2.) Continue current plan of care.
[2019-10-02 16:56] VITALS: BP 121/64
[2019-10-02] MEDS: LACTATED RINGER'S 1,000 ML IV SCH ×2 (17:22→23:55)
[2019-10-02 21:00] VITALS: BP 121/79
[2019-10-02] MEDS: LEVOFLOXACIN 500MG 100 ML IV SCH (21:36)
[2019-10-02] MEDS: TEMAZEPAM 15 MG CAP PO PRN (21:42)
[2019-10-02] MEDS: HYDROcodone-ACET 5/325MG TAB PO PRN (23:51)
[2019-10-03] MEDS: ONDANSETRON HCL 4 MG/2 ML VIAL IV PRN ×4 (01:15→20:09)
[2019-10-03] MEDS: HYDROmorphone HCL 2 MG/ML VL IV PRN ×7 (01:15→20:09)
[2019-10-03] MEDS: PROMETHAZINE HCL 25 MG/ML 1ML IV PRN ×3 (03:43→15:54)
[2019-10-03 04:30] VITALS: BP_SYST 102; BP_SYST 111; BP_DIAS 62; BP_DIAS 79
[2019-10-03 07:23] LABS: Basophils # (auto) 0 uL; Basophils % (auto) 0.2 % (0.0-2.0); Eosinophils # (auto) 0.1 uL; Eosinophils % (auto) 1.3 % (0.0-7.0); Hematocrit 25.2 % (41.0-53.0); Hemoglobin 8.5 g/dL (13.5-17.5); Lymphocytes # (auto) 1.2 uL; Mean Corpuscular Hgb Conc. 33.8 g/dL (32.0-36.0); Mean Corpuscular Volume 85.8 fL (80.0-100.0); Monocytes # (auto) 0.8 uL; Neutrophils # (auto) 3.3 uL; Neutrophils % (auto) 61.5 % (37.0-80.0); Nucleated Red Blood Cells % 0.1 %; Platelet Count (auto) 248 10^3/uL (140-450); Red Blood Cells 2.94 10^6/uL (4.5-5.90); Red Cell Distribution Width 13.1 % (11.8-14.3); White Blood Cell 5.4 10^3/uL (4.4-10.8)
[2019-10-03 07:41] LABS: Calcium 7.4 mg/dL (8.5-10.1); Potassium 3.3 mmol/L (3.5-5.1)
[2019-10-03 07:47] LABS: Albumin 1.4 g/dL (3.4-5.0); BUN/Creatinine Ratio 10.1; Bilirubin, Total 0.6 mg/dL (0.2-1.0); Magnesium 1.9 mg/dL (1.6-2.6); Total Protein 5.6 g/dL (6.4-8.2)
--- NOTE | 2019-10-03 07:50 | NUR ---
OPENING NOTE ASSUMED CARE OF PT. ALERT AND ORIENTED. NO S/S OF SOB/DISTRESS NOTED. SAFETY PRECAUTIONS IN PLACE. BED SET TO LOWEST POSITION/LOCKED. BEDSIDE RIALS UP X2. CALL LIGHT WITHIN REACH. INSTRUCTED PT TO CALL FOR ASSISTANCE. UPDATED ON POC. PT VERBALIZED UNDERSTANDING. WILL CONTINUE TO MONITOR Q 1HR AND PRN.
[2019-10-03 08:37] VITALS: BP 113/73
[2019-10-03 12:33] VITALS: BP 115/72
[2019-10-03] MEDS ORDERED: POTASSIUM CHL 20 Meq TABLET PO ONE (13:00)
[2019-10-03] MEDS ORDERED: MAGNESIUM SULFATE 1GM/100ML 100 ML IV ONE (13:00)
[2019-10-03] MEDS: LACTATED RINGER'S 1,000 ML IV SCH (13:48)
--- NOTE | 2019-10-03 16:19 | NUR ---
assessment Patient has no post discharge needs at this time. Addendum: 10/03/19 at 1620 by Taylor VILLANUEVA Amended: Links added.
[2019-10-03 16:34] VITALS: BP 122/71
[2019-10-03] MEDS: HYDROcodone-ACET 5/325MG TAB PO PRN (18:07)
--- NOTE | 2019-10-03 20:09 | NUR ---
Opening Shift Note Assumed care of patient, awake and alert. No S/S of distress/SOB,c/o abdominal pain 08/29. Instructed on POC and to call for assist PRN, will continue to monitor for changes Q1hr and PRN.Medicated with hydromorphone 1mg.i.v.p and zofran 4mg.i.v.p. as needed.Family at bedside.
[2019-10-03 22:19] VITALS: BP 116/65
[2019-10-04] MEDS: TEMAZEPAM 15 MG CAP PO PRN (00:02)
[2019-10-04] MEDS: ONDANSETRON HCL 4 MG/2 ML VIAL IV PRN ×3 (00:02→13:25)
[2019-10-04] MEDS: HYDROmorphone HCL 2 MG/ML VL IV PRN ×7 (00:02→23:19)
[2019-10-04 05:18] VITALS: BP 105/64
--- NOTE | 2019-10-04 07:25 | NUR ---
Report given to Becca Wood, patient is resting no distress.
--- NOTE | 2019-10-04 07:45 | NUR ---
OPENING SHIFT NOTE: Received report from NOC RNTatiana. Patient is sleeping in bed, no signs or symptoms of pain. Bed in lowest position, rails x2 up and call light within reach. Updated white board on plan of care. Will continue to monitor.
[2019-10-04 09:00] VITALS: BP 118/71
--- NOTE | 2019-10-04 09:00 | NUR ---
FAMILY: Patient's mother at nurses station. States she wants to take patient to [facility] due to him not getting better. RN is aware of patient in pain and is going to medicate patient as ordered. Mother aware. Patient's IV is no longer flushing. RN to start new IV.
--- NOTE | 2019-10-04 09:10 | NUR ---
MD: Dr Marshall paged regarding uncontrolled pain and patient's mother's request to speak with MD about transfer to [facility] or A.
--- NOTE | 2019-10-04 09:20 | NUR ---
IV: New IV started in Left AC #22 after one attempt. Patient tolerated well. IV to right FA discontinued and removed with catheter intact, pressure dressing applied.
--- NOTE | 2019-10-04 09:30 | NUR ---
: Dr Marshall paged for a second time regarding patient's uncontrolled pain.
[2019-10-04] MEDS: PROMETHAZINE HCL 25 MG/ML 1ML IV PRN ×2 (09:44→22:22)
[2019-10-04] MEDS: HYDROcodone-ACET 5/325MG TAB PO PRN ×2 (09:45→14:06)
[2019-10-04] MEDS ORDERED: KETOROLAC TROMETH 30 MG/ML 1ML VIAL IV PRN (10:15)
[2019-10-04] MEDS ORDERED: KETOROLAC TROMETH 30 MG/ML 1ML VIAL IV ONE (10:15)
--- NOTE | 2019-10-04 11:00 | NUR ---
MD: Spoke to Dr Wagoner regarding family and patient's concerns. Patient is concerned about not being able to lie flat for CT scan. MD gave one time order for dilaudid prior to CT scan. Informed patient that he will still need additional IV #20 prior to test being ran. Reeducated family and patient about possible transfer process to [facility]. Patient is agreeable to getting new IV.
[2019-10-04] MEDS ORDERED: HYDROmorphone HCL 2 MG/ML VL IV ONE (11:15)
--- NOTE | 2019-10-04 11:34 | NUR ---
IV: BRUCE Gagnon and BRUCE García at bedside to attempt to start #[address] scan.
--- NOTE | 2019-10-04 11:37 | NUR ---
IV: #20 started in Rt AC. prosthetic lab technician called and informed.
--- NOTE | 2019-10-04 11:45 | NUR ---
AMA: Patient and family continue to threaten to leave AMA. Patient and family continuously reeducated about plan for getting CT scan and order to give Dilaudid prior to CT scan. Patient also educated on when he would be able to receive next pain medication. Dr Wagoner being kept updated as well. Patient and family agree to stay for CT scan.
[2019-10-04] MEDS ORDERED: IOHEXOL 300 MG/ML 100ML BOTTLE IJ ONE (11:52)
--- NOTE | 2019-10-04 12:00 | NUR ---
RADIOLOGY: Patient medicated with dilaudid as ordered. Patient transported via wheelchair to radiology for CT scan.
[2019-10-04 13:00] VITALS: BP 151/105
--- NOTE | 2019-10-04 14:15 | NUR ---
MD: Dr Wagoner at bedside. Discussed with family and patient findings of CT scan, plan and process to transfer to [facility], and new orders. Patient and family verbalized understanding.
[2019-10-04] MEDS ORDERED: TPN PER PHARMACY 0 ML IV SCH (14:45)
[2019-10-04] MEDS: LACTATED RINGER'S 1,000 ML IV SCH (14:45)
[2019-10-04] MEDS ORDERED: MEROPENEM 1GM IVPB 100 ML IV ONE (14:45)
[2019-10-04] MEDS: KETOROLAC TROMETH 30 MG/ML 1ML VIAL IV PRN (16:00)
--- NOTE | 2019-10-04 16:00 | NUR ---
PICC LINE: PICC Line RNManisha unable to do PICC line this evening due to PT/INR not being completed yet. callisthenics instructor PICC line nurse to put line in first thing in morning if patient hasn't transferred HLOC.
[2019-10-04 16:31] LABS: INR 1.31 (0.9-1.15)
[2019-10-04 17:35] VITALS: BP 111/63
--- NOTE | 2019-10-04 19:25 | NUR ---
CLOSING SHIFT NOTE: Report given to [facility] RNs, Lb. Endorsed care of patient.
--- NOTE | 2019-10-04 19:40 | NUR ---
OPENING SHIFT NOTE RECEIVED PATIENT REPORT FROM DAY SHIFT RN. PATIENT SITTING UP IN BED WITH MOTHER AT BEDSIDE. PATIENT IS A/O X 4. NO S/S OF DISTRESS OR SOB. UPDATED PATIENT ON POC, VERBALIZED UNDERSTANDING. BED IN LOWEST LOCKED POSITION, CALL LIGHT WITHIN REACH. WILL CONTINUE TO MONITOR Q1H AND PRN.
[2019-10-04 21:00] VITALS: BP 102/69
[2019-10-04 22:00] VITALS: BP 108/74
[2019-10-04] MEDS: MEROPENEM 1GM IVPB 100 ML IV SCH (22:03)
[2019-10-05] MEDS: LACTATED RINGER'S 1,000 ML IV SCH ×3 (00:45→20:45)
[2019-10-05] MEDS: HYDROmorphone HCL 2 MG/ML VL IV PRN ×6 (01:03→22:46)
[2019-10-05] MEDS: TEMAZEPAM 15 MG CAP PO PRN (01:19)
[2019-10-05 05:00] VITALS: BP 114/87
[2019-10-05 05:33] VITALS: BP 91/54
[2019-10-05 05:41] LABS: Basophils # (auto) 0 uL; Basophils % (auto) 0.2 % (0.0-2.0); Eosinophils # (auto) 0.1 uL; Eosinophils % (auto) 0.9 % (0.0-7.0); Hematocrit 26.2 % (41.0-53.0); Hemoglobin 9.1 g/dL (13.5-17.5); Lymphocytes # (auto) 1.8 uL; Lymphocytes % (auto) 18.1 % (10.0-50.0); Mean Corpuscular Hemoglobin 29.4 pg (28.0-32.0); Mean Corpuscular Hgb Conc. 34.6 g/dL (32.0-36.0); Mean Corpuscular Volume 85.1 fL (80.0-100.0); Monocytes # (auto) 1.1 uL; Monocytes % (auto) 11.4 % (0.0-12.0); Neutrophils % (auto) 69.4 % (37.0-80.0); Platelet Count (auto) 365 10^3/uL (140-450); Red Blood Cells 3.08 10^6/uL (4.5-5.90); Red Cell Distribution Width 13.1 % (11.8-14.3); White Blood Cell 10.1 10^3/uL (4.4-10.8)
[2019-10-05] MEDS: MEROPENEM 1GM IVPB 100 ML IV SCH ×3 (05:55→22:00)
[2019-10-05 06:15] LABS: Albumin 1.2 g/dL (3.4-5.0); BUN/Creatinine Ratio 10.7; Calcium 7.2 mg/dL (8.5-10.1); Magnesium 2.1 mg/dL (1.6-2.6); Total Protein 5.3 g/dL (6.4-8.2)
[2019-10-05 06:20] LABS: Bilirubin, Total 0.4 mg/dL (0.2-1.0); Phosphorus 4.2 mg/dL (2.5-4.90)
--- NOTE | 2019-10-05 07:20 | NUR ---
late entry I have faxed transfer packet to [facility]
--- NOTE | 2019-10-05 08:02 | NUR ---
House sup notified regarding patient needs PICC placement.
--- NOTE | 2019-10-05 09:13 | NUR ---
o/c note instsructed Suni to fax to [facility] ( [phone]) fax ([phone]) face sheet, labs, last progress notes, and most recent ct of abd. Also informed Suni that [facility] and most hospitals are holding and have no beds. and that [facility] has m/s beds and to let pt/family know.
[2019-10-05 09:17] VITALS: BP 96/50
--- NOTE | 2019-10-05 09:54 | NUR ---
FAXED : [phone] H AND P,FACESHEET, LABS, LAST PROGRESS NOTE AND LAST CT ABDOMEN TO [facility].
--- NOTE | 2019-10-05 09:56 | NUR ---
FAXED : [phone] H AND P,FACESHEET, LABS, LAST PROGRESS NOTE AND LAST CT ABDOMEN TO [facility]
--- NOTE | 2019-10-05 11:11 | NUR ---
Received a call from Ricky (global transportation manager) stated [facility] cannot perform a procedure and patient needs to transfer to tertiary hospital. Rae paged , awaiting to call back.
[2019-10-05] MEDS ORDERED: LIDOCAINE 1% (LOCAL ANESTH.) PF 5ml SDV ID ONE (11:15)
--- NOTE | 2019-10-05 11:17 | NUR ---
PICC line placement Patient/Patient significant other educated on need for PICC line placement. All risks and benefits explained and all questions and concerns addressed prior to procedure. Noted past medical history and allergies with no contraindications. INR and Plt counts within acceptable range. 5fr PICC line inserted via right basilic vein using [employer] US and Tip Location System. Sterile technique with maximum barrier precautions utilized. Blood return obtained from each of 2 lumens and each flushed easily with NS using proper technique. PICC secured with Stat-lock; biodisc and occlusive dressing applied. Stat portable chest x-ray obtained for PICC tip placement. *Baseline Arm Circumference 24cm. PICC lot # [id number]. Internal length 43cm External length 1cm
--- NOTE | 2019-10-05 11:27 | NUR ---
o/c note Suni paged me and stated family wants pt to go to [facility]. I called [facility] and they want form filled out and sent back to them with what they requested. I had [facility] fax form to Catherine at [phone]
[2019-10-05 12:30] VITALS: BP 95/55
--- NOTE | 2019-10-05 14:05 | NUR ---
Nutrition Follow-up Notes Wt.: 76.6 kg as of yesterday. Pt's with RN at bedside for PICC line placement when rounded this morning. Pt's s/p paracentesis (09/30/19), no signs of distress earlier, currently NPO, for possible PN support (no active order in meds list yet at this time), per nursing. Noted pt's for possible transfer to tertiary hospital. Est. Needs BW 78 [id number] kcal (23-25 kcal/kgBW), 78-93 gms pro (1.0-1.2 gms/kgBW r/t severe hypoalb). Will continue to monitor pertinent labs and reassess nutrient need prn Labs: Na 133 L, BUN 19 H, Cr 1.78 H, Ca 7.2 L, ALT 9 L, ALP 226 H, Tpro 5.3 L, Alb 1.2 L Skin: Junito scale 22, low risk, skin intact per decision analyst. GI: Pt had 4x BM 10/03/19 per decision analyst. PES: Increased nutrient needs r/t altered GI functions aeb cirrhosis, pancreatitis, abdominal pain, severe hypoalbuminemia, NPO. Altered nutrition related lab values r/t current/chronic medical condition aeb elev BUN pancreatic enzymes and hypocalcemia, svere hypoalb Will continue to monitor NPO status, skin status, pertinent labs and weight trend. F/u in 2 to 3 days. Rec.: 1.) If still NPO with Albumin/Prealbumin continue trending down, consider alternate/PN support if medically appropriate. 2.) Advance gradually to oral diet when medically appropriate. 3.) Refer pt to RD for further nutrition education and weight monitoring upon discharge. 4.) Continue current plan of care.
--- NOTE | 2019-10-05 14:08 | NUR ---
o/c note Nery Mendiola RN was kind enough to print the [facility] transfer request form and will give to Suni Culp
--- NOTE | 2019-10-05 14:16 | NUR ---
Faxed [facility] form to #[phone].
--- NOTE | 2019-10-05 16:23 | NUR ---
Received a call from [facility] stated needs all patient info and physician cell phone number. Spoke to Dr. Fraser regarding [facility] needs MD cell phone, he said they can page via [facility]. [facility] cannot be [facility] way and will have to talk to their CM due to this issue.
--- NOTE | 2019-10-05 16:23 | NUR ---
o/c note Suni stated [facility] called her and stated [facility] does not do the procedure pt needs at their facility
--- NOTE | 2019-10-05 16:28 | NUR ---
Faxed all patient's info to [facility] # [phone].
[2019-10-05 17:00] VITALS: BP 102/56
[2019-10-05] MEDS: PROMETHAZINE HCL 25 MG/ML 1ML IV PRN (18:10)
--- NOTE | 2019-10-05 18:44 | NUR ---
D/C held regarding awaiting for higher level of care bed. Dr. Fraser made aware.
--- NOTE | 2019-10-05 19:40 | NUR ---
Opening Shift Note Assumed care of patient, awake and alert. Family at bedside. No S/S of distress/SOB or pain. Bed in lowest locked position, side rails up x2, call light within reach. Instructed on POC and to call for assist PRN, will continue to monitor for changes Q1hr and PRN.
[2019-10-05] MEDS ORDERED: PPN PER PHARMACY IV NR ×4 (20:00)
[2019-10-05 22:00] VITALS: BP 109/68
[2019-10-05] MEDS: SODIUM CHLOR 0.9% PF (SALINE LOCK) 10ML VIAL/SYR IV SCH (22:43)
[2019-10-06] MEDS ORDERED: DEXTROSE (50%) 50ML SYRG IV SCH
[2019-10-06] MEDS: ACCU-CHEK COMFORT CURVE STRIP VI SCH ×4 (00:10→17:55)
[2019-10-06] MEDS: HYDROmorphone HCL 2 MG/ML VL IV PRN ×8 (04:37→23:12)
[2019-10-06] MEDS: PROMETHAZINE HCL 25 MG/ML 1ML IV PRN ×3 (04:47→20:52)
[2019-10-06 05:23] VITALS: BP 123/68
[2019-10-06] MEDS: MEROPENEM 1GM IVPB 100 ML IV SCH ×3 (06:52→22:54)
[2019-10-06] MEDS: LACTATED RINGER'S 1,000 ML IV SCH ×2 (06:52→16:45)
[2019-10-06] MEDS: InsuLIN REG 1unit/0.01ml Soln (100units/ml) SC SCH ×4 (07:09→17:55)
--- NOTE | 2019-10-06 07:17 | NUR ---
IV removal IV to left AC noted to be leaking, DC'd with clean sterile technique, catheter fully intact. Pressure dressing applied to site. Patient tolerated well. PICC line to right upper arm noted to be patient, clean, dry and intact.
--- NOTE | 2019-10-06 07:20 | NUR ---
Closing Note Patient lying in bed, awake and alert. No s/s of distress. Bed in lowest locked position, side rails up x2, call light within reach. No s/s of distress. Care endorsed to dayshift RN.
--- NOTE | 2019-10-06 07:45 | NUR ---
Rae BURR made aware of [facility] needs MD cell phone number. However, Dr. Fraser wants [facility] paged via the hospital roughing mill operator only.
[2019-10-06 07:47] LABS: Basophils # (auto) 0 uL; Eosinophils # (auto) 0.1 uL; Eosinophils % (auto) 0.8 % (0.0-7.0); Mean Corpuscular Volume 87.6 fL (80.0-100.0); Monocytes # (auto) 0.7 uL; Nucleated Red Blood Cells % 0.2 %
[2019-10-06 07:50] LABS: Basophils % (auto) 0.6 % (0.0-2.0); Hematocrit 24.5 % (41.0-53.0); Lymphocytes # (auto) 1.4 uL; Mean Corpuscular Hemoglobin 28.8 pg (28.0-32.0); Mean Corpuscular Hgb Conc. 32.9 g/dL (32.0-36.0); Monocytes % (auto) 10.3 % (0.0-12.0); Neutrophils % (auto) 69.3 % (37.0-80.0); Platelet Count (auto) 339 10^3/uL (140-450); Red Blood Cells 2.79 10^6/uL (4.5-5.90); Red Cell Distribution Width 13.5 % (11.8-14.3); White Blood Cell 7.2 10^3/uL (4.4-10.8)
[2019-10-06 07:59] LABS: Anion Gap 7 (5-15); Blood Urea Nitrogen 20 mg/dL (7-18); Calcium 6.6 mg/dL (8.5-10.1); Carbon Dioxide 26 mmol/L (21-32); Chloride 97 mmol/L (98-107); Glucose 369 mg/dL (74-106); Magnesium 2.2 mg/dL (1.6-2.6); Potassium 3.3 mmol/L (3.5-5.1); Sodium 130 mmol/L (136-145)
[2019-10-06 08:02] LABS: Alanine Aminotransferase 9 U/L (16-61); Aspartate Aminotransferase 22 U/L (15-37); BUN/Creatinine Ratio 17.1; GFR African American 94 mL/min; GFR Non-African American 78 mL/min; Triglycerides 95 mg/dL (< 150)
--- NOTE | 2019-10-06 08:02 | NUR ---
o/c note: Suni ch RN informed me [facility] wanted to have a cell phone# for so they could call him directly. Dr. Fraser wants to be paged on MD line and even though Dr. Fraser is very fast in answering that line, [facility] does not want to work the transfer on a page. I cannot work on this transfer today since [facility] is probably the only hospital I have a chance in getting this pt to a facility that can do this procedure and because the other hospitals I have tried either do not do the procedure or they are maxed out on pts
[2019-10-06 08:04] LABS: Alkaline Phosphatase 239 U/L (45-117); Bilirubin, Total 0.4 mg/dL (0.2-1.0); Phosphorus 3.5 mg/dL (2.5-4.90); Total Protein 4.8 g/dL (6.4-8.2)
--- NOTE | 2019-10-06 08:20 | NUR ---
Critical albumin 0.9, Dr. Fraser paged, awaiting to call back.
[2019-10-06 08:21] LABS: Albumin 0.9 g/dL (3.4-5.0)
--- NOTE | 2019-10-06 08:25 | NUR ---
Received a call from Dr. Fraser , made aware of albumin 0.9, no new order at this time, will continue to monitor.
[2019-10-06 08:28] LABS: Pre Albumin < 3.0 mg/dL (20.0-40.0)
[2019-10-06 09:00] VITALS: BP 131/76
[2019-10-06] MEDS ORDERED: POTASSIUM CHL 20MEQ/100ML 100 ML IV ONE (09:30)
[2019-10-06] MEDS: SODIUM CHLOR 0.9% PF (SALINE LOCK) 10ML VIAL/SYR IV SCH ×2 (09:36→23:00)
--- NOTE | 2019-10-06 09:44 | NUR ---
Spoke to Dr. Fraser , patient can have ice chips and popsicle, noted and carried it out.
--- NOTE | 2019-10-06 10:00 | NUR ---
Opening Shift Note Assumed care of patient, awake and alert. No S/S of distress/SOB or pain. Instructed on POC and to call for assist PRN, will continue to monitor for changes Q1hr and PRN.
[2019-10-06 13:00] VITALS: BP 108/68
[2019-10-06 17:00] VITALS: BP 103/68
--- NOTE | 2019-10-06 18:35 | NUR ---
Received a call from [facility] (Camille RN coordinator) regarding MD still wants to transfer patient or not. I informed that we still want to transfer patient, However, MD is unable to give a cell phone number and [facility] is unable to accept the patient without MD call phone. Rae BURR made aware and will work on it on Monday.
[2019-10-06 20:00] VITALS: BP 107/65
[2019-10-06] MEDS ORDERED: TPN PER PHARMACY IV NR ×9 (20:00)
--- NOTE | 2019-10-06 20:00 | NUR ---
Opening Shift Note Assumed care of patient, awake and alert. No S/S of distress/SOB. Patient is on room air, even and unlabored respirations. Patient is alert and oriented x4, follows direction. Patient is ambulatory. Patient PICC line in right upper arm is patent and dressing is clean, dry, and intact. Abdomen ascitic, tender to palpation, active bowel sounds noted. Instructed on POC and to call for assist PRN, will continue to monitor for changes Q1hr and PRN.
[2019-10-06 22:29] VITALS: BP 107/65
[2019-10-07 05:00] VITALS: BP 91/55
[2019-10-07] MEDS: InsuLIN REG 1unit/0.01ml Soln (100units/ml) SC SCH ×4 (06:00→18:00)
[2019-10-07] MEDS: MEROPENEM 1GM IVPB 100 ML IV SCH ×3 (06:22→22:14)
[2019-10-07] MEDS: LACTATED RINGER'S 1,000 ML IV SCH ×2 (06:23→16:46)
[2019-10-07] MEDS: ACCU-CHEK COMFORT CURVE STRIP VI SCH ×4 (06:31→18:10)
[2019-10-07] MEDS: HYDROmorphone HCL 2 MG/ML VL IV PRN ×6 (06:41→22:14)
[2019-10-07 06:45] LABS: Basophils # (auto) 0 uL; Eosinophils # (auto) 0.1 uL; Hemoglobin 8.2 g/dL (13.5-17.5); Monocytes # (auto) 0.7 uL
[2019-10-07 06:50] LABS: Basophils % (auto) 0.4 % (0.0-2.0); Hematocrit 26.1 % (41.0-53.0); Lymphocytes # (auto) 1.3 uL; Lymphocytes % (auto) 17.3 % (10.0-50.0); Mean Corpuscular Hgb Conc. 31.2 g/dL (32.0-36.0); Monocytes % (auto) 9.7 % (0.0-12.0); Neutrophils # (auto) 5.5 uL; Neutrophils % (auto) 71.6 % (37.0-80.0); Platelet Count (auto) 382 10^3/uL (140-450); Red Blood Cells 2.81 10^6/uL (4.5-5.90); White Blood Cell 7.6 10^3/uL (4.4-10.8)
--- NOTE | 2019-10-07 07:10 | NUR ---
Closing Note patient resting in bed with even and unlabored respirations, no s/s of distress. Endorsed care to day shift RN.
[2019-10-07 08:00] VITALS: BP 101/65
--- NOTE | 2019-10-07 08:42 | NUR ---
OPENING SHIFT NOTE: PATIENT AWAKE RESTING IN BED. PATIENT ABLE TO GIVE FULL REPORT TO THIS RN ON CURRENT HOSPITAL STAY, PATIENT IS FULLY AWARE OF PLAN OF CARE. PATIENT ABDOMEN DISTENDED WITH ACTIVE BOWEL SOUNDS. PATIENT STATES HIS ABDOMEN IS " BIG IT'S BEEN SINCE THE PARA," REGARDING PARACENTESIS DONE ON 09/30. PATIENT ABLE TO AMBULATE, MAKE HIS BED, HE HAS A MORNING ROUTINE. RESPIRATIONS EVEN AND UNLABORED. EDUCATED FALL PRECAUTIONS. WILL CONTINUE TO MONITOR.
[2019-10-07] MEDS: SODIUM CHLOR 0.9% PF (SALINE LOCK) 10ML VIAL/SYR IV SCH ×2 (10:23→22:15)
--- NOTE | 2019-10-07 11:58 | NUR ---
Transfer: Faxed paper work to [facility] and Dr. Wagoner aware to expect a phone call from them.
[2019-10-07 12:00] VITALS: BP 115/69
[2019-10-07 12:05] LABS: Sodium 133 mmol/L (136-145)
[2019-10-07 12:06] LABS: Alanine Aminotransferase 10 U/L (16-61); Alkaline Phosphatase 309 U/L (45-117); Anion Gap 6 (5-15); Aspartate Aminotransferase 37 U/L (15-37); BUN/Creatinine Ratio 17.4; Blood Urea Nitrogen 16 mg/dL (7-18); Carbon Dioxide 26 mmol/L (21-32); Chloride 101 mmol/L (98-107); GFR African American 124 mL/min; GFR Non-African American 103 mL/min; Glucose 107 mg/dL (74-106); Potassium 3.4 mmol/L (3.5-5.1)
[2019-10-07 12:07] LABS: Albumin 1.2 g/dL (3.4-5.0); Bilirubin, Total 0.6 mg/dL (0.2-1.0); Magnesium 2.1 mg/dL (1.6-2.6); Phosphorus 2.7 mg/dL (2.5-4.90); Total Protein 6.3 g/dL (6.4-8.2)
[2019-10-07] MEDS: PROMETHAZINE HCL 25 MG/ML 1ML IV PRN ×3 (12:27→22:14)
[2019-10-07] MEDS ORDERED: POTASSIUM CHL 20MEQ/100ML 100 ML IV ONE ×2 (13:00)
--- NOTE | 2019-10-07 14:36 | NUR ---
PATIENT TAKEN TO [facility] VIA WHEELCHAIR.
--- NOTE | 2019-10-07 14:43 | NUR ---
Paracentesis. 1440: v/s BP 118/80. HR 86, RR 18, 02 sat 97% on room air. 1441: Time out. 1445: Procedure started by Dr Spaulding. 1447: Drainage begun.
--- NOTE | 2019-10-07 14:57 | NUR ---
Paracentesis. V/S: BP 114/76, HR 80, RR18, 02 Sat 99% RA. Drainage bottle #3 being filled. Pt states no pain.
--- NOTE | 2019-10-07 15:15 | NUR ---
Paracentesis. Paracentesis concluded. About 4.5 liters of drainage returned. V/S stable throughout. Drainage tube removed and dry sterile dressing applied to the insertion side on the right side of the abdomen. No drainage noted on the dsg. Pt returned to rm 298B via w/c by [employer].
--- NOTE | 2019-10-07 15:51 | NUR ---
Transfer: Nery at [facility] stated that they are going to arrange MD to MD (SHOLA) and go from there depending what GI decides
--- NOTE | 2019-10-07 16:04 | NUR ---
Transfer: [facility] is on will call, auth for transportation is [id number] per Esperanza at [facility]
--- NOTE | 2019-10-07 16:09 | NUR ---
Auth once we get an accepting facility, the auth # will be [id number]
[2019-10-07 17:00] VITALS: BP 112/69
--- NOTE | 2019-10-07 18:53 | NUR ---
CLOSING SHIFT NOTE: PATIENT RESTING IN BED, C/O NAUSEA AND RIGHT SIDED ABDOMINAL PAIN 8-07/30. MEDICATED WITH NAUSEA MEADICATION ORDERED. IV PATENT AND RUNNING. RESPIRATIONS EVEN AND UNLABORED. CALL LIGHT WITHIN REACH, FAMILY AT BEDSIDE. WILL ENDORSE CARE TO NOC RN.
--- NOTE | 2019-10-07 19:32 | NUR ---
CARE ENDORSED TO MICHAEL MANZANO.
[2019-10-07] MEDS: ONDANSETRON HCL 4 MG/2 ML VIAL IV PRN ×2 (19:50→23:53)
[2019-10-07] MEDS ORDERED: TPN PER PHARMACY IV NR ×10 (20:00)
[2019-10-07 23:20] VITALS: BP 114/74
[2019-10-07] MEDS: KETOROLAC TROMETH 30 MG/ML 1ML VIAL IV PRN (23:56)
[2019-10-08] MEDS: TEMAZEPAM 15 MG CAP PO PRN
[2019-10-08] MEDS: ACCU-CHEK COMFORT CURVE STRIP VI SCH ×4 (00:06→18:27)
[2019-10-08] MEDS: HYDROmorphone HCL 2 MG/ML VL IV PRN ×8 (00:32→23:12)
[2019-10-08] MEDS: LACTATED RINGER'S 1,000 ML IV SCH ×2 (03:18→17:11)
[2019-10-08] MEDS: PROMETHAZINE HCL 25 MG/ML 1ML IV PRN ×4 (03:57→23:12)
[2019-10-08 05:28] VITALS: BP 101/63
[2019-10-08] MEDS: ONDANSETRON HCL 4 MG/2 ML VIAL IV PRN ×2 (05:57→21:30)
[2019-10-08] MEDS: MEROPENEM 1GM IVPB 100 ML IV SCH ×4 (05:58→22:00)
[2019-10-08] MEDS: InsuLIN REG 1unit/0.01ml Soln (100units/ml) SC SCH ×4 (06:00→18:00)
[2019-10-08 07:41] LABS: Albumin 1.1 g/dL (3.4-5.0); Magnesium 2.1 mg/dL (1.6-2.6); Potassium 3.6 mmol/L (3.5-5.1)
[2019-10-08 07:44] LABS: BUN/Creatinine Ratio 18.8; Bilirubin, Total 0.2 mg/dL (0.2-1.0); Phosphorus 4.2 mg/dL (2.5-4.90)
[2019-10-08 08:00] VITALS: BP 95/68
--- NOTE | 2019-10-08 08:15 | NUR ---
OPENING SHIFT NOTE ASSUMED CARE OF PT. NO SOB OR SIGNS OF DISTRESS NOTED. INSTRUCTED ON POC AND TO CALL FOR HELP PRN. BED IN LOWEST POSITION WITH SIDE RAILS UP X2. WILL CONTINUE TO MONITOR.
--- NOTE | 2019-10-08 08:53 | NUR ---
Transfer: I paged and called Dr. Avalos (had to leave message) that SHOLA from [facility] would be calling him
--- NOTE | 2019-10-08 10:00 | NUR ---
SPOKE WITH DR STEWARD. TOLD HIM HIGHER LEVEL OF CARE FACILITY NEEDED TO COMMUNICATE WITH HIM. DR LOWERY STATED PT WAS CLEARED BY HIM AFTER THE LAST TIME HE SPOKE WITH PT.
[2019-10-08 12:00] VITALS: BP 100/64
--- NOTE | 2019-10-08 12:14 | NUR ---
Nutrition Follow-up Notes Wt.: 68.7 kg Pt's sleeping with no family by bedside. Pt's s/p paracentesis (09/30/19), no signs of distress earlier, currently NPO, on PN support @ 60 ml.hr providing 1570 kcals and 70 gm proteins 1290 NCP. pt with adequate PN support as it meets 80-87% kcals and 75-895 proteins Est. Needs BW 78 [id number] kcal (23-25 kcal/kgBW), 78-93 gms pro (1.0-1.2 gms/kgBW r/t severe hypoalb). Will continue to monitor pertinent labs and reassess nutrient need prn Labs: CA 7.0 L, ALB 1.1 L. Skin: Junito scale 21, low risk, skin intact per cold rolling supervisor. GI: Pt had 2 BM today per cold rolling supervisor. PES: Increased nutrient needs r/t altered GI functions aeb cirrhosis, pancreatitis, abdominal pain, severe hypoalbuminemia, NPO. Altered nutrition related lab values r/t current/chronic medical condition aeb elev BUN pancreatic enzymes and hypocalcemia, svere hypoalb Will continue to monitor NPO status, PN tolerance, skin status, pertinent labs and weight trend. F/u in 2 to 3 days. Rec.: 1.) Advance PN support to meet > 75% of needs. 2.) Advance gradually to oral diet when medically appropriate. 3.) Refer pt to RD for further nutrition education and weight monitoring upon discharge. 4.) Continue current plan of care.
[2019-10-08 17:00] VITALS: BP 101/68
[2019-10-08] MEDS: SODIUM CHLOR 0.9% PF (SALINE LOCK) 10ML VIAL/SYR IV SCH ×2 (17:10→21:26)
[2019-10-08] MEDS ORDERED: TPN PER PHARMACY IV NR ×10 (20:00)
[2019-10-08 22:00] VITALS: BP 113/78
[2019-10-09] MEDS: ONDANSETRON HCL 4 MG/2 ML VIAL IV PRN ×4 (02:50→19:33)
[2019-10-09] MEDS: HYDROmorphone HCL 2 MG/ML VL IV PRN ×9 (02:51→21:50)
[2019-10-09] MEDS: ACCU-CHEK COMFORT CURVE STRIP VI SCH ×4 (05:20→17:43)
[2019-10-09] MEDS: PROMETHAZINE HCL 25 MG/ML 1ML IV PRN ×4 (05:20→21:12)
[2019-10-09] MEDS: MEROPENEM 1GM IVPB 100 ML IV SCH ×3 (05:20→21:12)
[2019-10-09 05:23] VITALS: BP 108/66
[2019-10-09] MEDS: InsuLIN REG 1unit/0.01ml Soln (100units/ml) SC SCH ×4 (05:28→17:42)
[2019-10-09 07:46] LABS: BUN/Creatinine Ratio 19.4; Calcium 7.1 mg/dL (8.5-10.1); Magnesium 2.3 mg/dL (1.6-2.6); Potassium 3.8 mmol/L (3.5-5.1)
[2019-10-09 07:48] LABS: Bilirubin, Total 0.3 mg/dL (0.2-1.0); Phosphorus 2.7 mg/dL (2.5-4.90); Total Protein 4.9 g/dL (6.4-8.2)
[2019-10-09 07:59] LABS: Albumin 0.9 g/dL (3.4-5.0)
[2019-10-09] MEDS: LACTATED RINGER'S 1,000 ML IV SCH (08:26)
[2019-10-09 09:00] VITALS: BP 110/76
[2019-10-09] MEDS: SODIUM CHLOR 0.9% PF (SALINE LOCK) 10ML VIAL/SYR IV SCH ×2 (10:17→21:51)
--- NOTE | 2019-10-09 10:56 | NUR ---
I called [facility] transfer center [phone] and spoke with Krissy-she said their GI doctor is not accepting any patients right now for transfer. She did say that they would be able to take the patient-perform the specific procedure and send the patient back here-I placed a page out to Dr. Wagoner.
--- NOTE | 2019-10-09 11:31 | NUR ---
CRITICAL LAB VALUE OF ABLUMIN 0.9 HOSPITALIST KANDACE NOTIFIED THIS A.M. NO NEW ORDERS GIVEN DR. ENRIQUEZ NOTIFIED ORDER FOR DIETARY CONSULT PLACED
--- NOTE | 2019-10-09 11:44 | NUR ---
I called [facility] [phone] and spoke with Anastasiya, she is going to call her GI doctor to ask him if they are accepting this patient and she will give me a call back.
--- NOTE | 2019-10-09 12:24 | NUR ---
I spoke with Anastasiya at the [facility] center, she said that her GI doctor spoke with Dr. Avalos and they are accepting this patient-she just needs her hospitalist to speak with Dr. Wagoner-I verified that she has contact information for Dr. Wagoner. I also placed a page out to Dr. Wagoner to let her know that [facility] physician would be contacting her.
[2019-10-09 13:00] VITALS: BP 119/71
--- NOTE | 2019-10-09 13:00 | NUR ---
PAGED DR ENRIQUEZ. LEYDI FROM [facility] ([phone]) CALLED AND NEEDS TO SPEAK TO MD REGARDING PATIENT TO COMPLETE PATIENT TRANSFER.
--- NOTE | 2019-10-09 13:34 | NUR ---
CALLED JULIETA HOLLEY FROM [facility] STATES SHE IS UNABLE TO REACH STAFF MEMBER. ELIDIA'S PHONE NUMBER IS [phone]/ ELIDIA STATES SHE IS CALLING TO COMPLETE PATIENT TRANSFER REQUEST
--- NOTE | 2019-10-09 14:19 | NUR ---
I called [facility] [phone] and left message asking for name/number of their MD for me to give to Dr. Wagoner to facilitate MD to MD dialogue. I also called Dr. Wagoner to let her know that they said they have been trying to get a hold of her-she said she had no missed calls on her cell phone. I let her know I was trying to get their MD info to give to her.
--- NOTE | 2019-10-09 14:29 | NUR ---
I called [facility] [phone] and spoke with Anastasiya to ask for her MD name/phone number-she is going to contact him and ask him to call Dr. Wagoner right now.
--- NOTE | 2019-10-09 16:41 | NUR ---
I spoke with Arlene at [facility]-patient remains on will-call pending transfer to [facility]. I called [facility] transfer center [phone] and spoke with Anastasiya, she said they are just waiting for a bed and they will call the nurse's station when one becomes available. I spoke with nurse Lulu to update her on the status of the transfer-letting her know to have the chart copied and all radiology procedure placed on a disc.
--- NOTE | 2019-10-09 16:44 | NUR ---
I spoke with Loida at [facility] to update her on the status of the transfer-letting her know that [facility] has accepted patient-just waiting for a bed assignment.
[2019-10-09 17:59] VITALS: BP 119/71
--- NOTE | 2019-10-09 18:19 | NUR ---
REPORT CALLED TO [facility], [phone] / SPOKE TO MELANIE.
--- NOTE | 2019-10-09 18:27 | NUR ---
ANNA CONTACTED, SPOKE TO LYNN, LYNN STATED TRANSPORTATION WILL HERE AT [phone] TO RECEIVE PATIENT
[2019-10-09 19:30] VITALS: BP 120/79
[2019-10-09] MEDS ORDERED: TPN PER PHARMACY IV NR ×9 (20:00)
[2019-10-09] MEDS ORDERED: LACTATED RINGER'S 1,000 ML IV SCH (20:00)
[2019-10-09 20:25] VITALS: BP 117/73
[2019-10-10] MEDS: ONDANSETRON HCL 4 MG/2 ML VIAL IV PRN ×2 (00:45→06:47)
[2019-10-10] MEDS: HYDROmorphone HCL 2 MG/ML VL IV PRN ×3 (00:46→06:48)
[2019-10-10 04:03] VITALS: BP 104/72
[2019-10-10] MEDS: PROMETHAZINE HCL 25 MG/ML 1ML IV PRN (04:49)
[2019-10-10] MEDS: MEROPENEM 1GM IVPB 100 ML IV SCH (04:49)
[2019-10-10] MEDS: InsuLIN REG 1unit/0.01ml Soln (100units/ml) SC SCH ×2 (06:00)
[2019-10-10] MEDS: ACCU-CHEK COMFORT CURVE STRIP VI SCH ×2 (06:00)
[2019-10-10 06:13] LABS: Calcium 7.4 mg/dL (8.5-10.1); Potassium 3.8 mmol/L (3.5-5.1)
[2019-10-10 06:19] LABS: Albumin 1.1 g/dL (3.4-5.0); BUN/Creatinine Ratio 16.7; Bilirubin, Total 0.3 mg/dL (0.2-1.0); Magnesium 2.2 mg/dL (1.6-2.6); Phosphorus 3.6 mg/dL (2.5-4.90); Total Protein 5.7 g/dL (6.4-8.2)
--- NOTE | 2019-10-10 06:41 | NUR ---
[facility] EN ROUTE TO TRANSFER PATIENT TO [facility]
--- NOTE | 2019-10-10 06:45 | NUR ---
[facility] AT BEDSIDE TO TRANSFER PATIENT. PATIENT HAS IV ACCESS DOUBLE LUMEN PICC INFUSING TPN @ 77 AND LR @50. INFORMED [facility] NURSE THAT PATIENT WAS GIVEN DILAUDID 1MG IV @0647 AND ZOFRAN 4MG IV@647. ALL BELONGINGS WITH PATIENT. GLADYS LEFT VIA GURNEY.
--- NOTE | 2019-10-10 06:50 | NUR ---
SPOKE WITH KATERINA [phone] INFORMED HER PATIENT IS BEING PICKED UP AND TRAVEL TIME APPROXIMATELY 3HRS. KATERINA STATES SHE WILL CALL BACK FOR REPORT.
--- NOTE | 2019-10-10 07:20 | NUR ---
NURSE ABIMAEL FROM [facility] WILL RESUME CARE OF PATIENT. GAVE HER REPORT REGARDING PATIENT. ALL QUESTIONS ANSWERED AND ESTIMATED TRAVEL TIME 3HRS.
[2019-10-10] MEDS ORDERED: TPN PER PHARMACY IV NR ×11 (20:00)
== END 2019-10-10 06:45 | disposition short-term general hospital (02) | DRG 282 ==
LOC: ER 14:52 → EDBD 14:52 → OVERFLOW 14:53 → WEST WING 22:42
PROVIDERS: ADMIT Nurse Practitioner; ATTEND Hospitalist
PROC: 0W9G3ZZ Drainage of Peritoneal Cavity, Percutaneous Approach (ICD-10-PCS; principal; 2019-09-30)
PROC: 02H633Z Insertion of Infusion Device into Right Atrium, Percutaneous Approach (ICD-10-PCS; 2019-10-05)
PROC: 0W9G3ZZ Drainage of Peritoneal Cavity, Percutaneous Approach (ICD-10-PCS; 2019-10-07)
DX: K85.20 Alcohol induced acute pancreatitis without necrosis or infection (principal); N17.0 Acute kidney failure with tubular necrosis; E43 Unspecified severe protein-calorie malnutrition; R65.10 Systemic inflammatory response syndrome (SIRS) of non-infectious origin without acute organ dysfunction; N18.3 Chronic kidney disease, stage 3 (moderate); K70.31 Alcoholic cirrhosis of liver with ascites; K42.9 Umbilical hernia without obstruction or gangrene; K86.1 Other chronic pancreatitis; Y90.9 Presence of alcohol in blood, level not specified; K86.3 Pseudocyst of pancreas; Z79.899 Other long term (current) drug therapy; Z68.26 Body mass index [BMI] 26.0-26.9, adult; Z82.49 Family history of ischemic heart disease and other diseases of the circulatory system
CPT/HCPCS: 10022; 36415; 36569; 49083; 71045; 74176; 74178; 76700; 76942; 80048; 80053; 82040; 82150; 82962; 83605; 83690; 83735; 84100; 84478; 85025; 85610; 85730; 87040; 87081; 94761; 96365; 96367; 96375; G0378; J0696; J1885; J1956; J2185; J2405; J3480; J7060; J7131

== ENCOUNTER 2020-01-06 21:35 | Emergency (ER) | payer MEDICAID ==
[~2020-01-06] VITALS: Ht 167.6 cm; Wt 79.4 kg
[~2020-01-06 21:35] MED LIST changes: +AMIL5TAB PO; -BUME1TAB26 PO; +BUME1TAB28 PO; +CIPR-173 PO; +FAM20T PO; -FURO40TA4 PO; +LACT10SO60 PO; +LANS15CA21 PO; +MULTTAB PO; +ONDA-144 PO; +PANC12002 PO; -PANT40TA2 PO; +SIME80CH6 PO; -SPIR50TA5 PO; +SULF-92 PO; +THIA100T5 PO; +TRAM50TA2 PO
[2020-01-06 22:57] LABS: Basophils # (auto) 0.1 uL; Basophils % (auto) 0.7 % (0.0-2.0); Eosinophils # (auto) 0.3 uL; Eosinophils % (auto) 4.2 % (0.0-7.0); Hematocrit 35.8 % (41.0-53.0); Hemoglobin 11.9 g/dL (13.5-17.5); Lymphocytes # (auto) 2.6 uL; Lymphocytes % (auto) 33.7 % (10.0-50.0); Mean Corpuscular Hemoglobin 28.9 pg (28.0-32.0); Mean Corpuscular Hgb Conc. 33.1 g/dL (32.0-36.0); Mean Corpuscular Volume 87.3 fL (80.0-100.0); Monocytes # (auto) 0.4 uL; Monocytes % (auto) 4.8 % (0.0-12.0); Neutrophils # (auto) 4.4 uL; Neutrophils % (auto) 56.6 % (37.0-80.0); Platelet Count (auto) 272 10^3/uL (140-450); Red Cell Distribution Width 13.4 % (11.8-14.3); White Blood Cell 7.7 10^3/uL (4.4-10.8)
[2020-01-06 23:13] LABS: INR 1.02 (0.9-1.15)
[2020-01-06 23:15] LABS: Albumin 3.6 g/dL (3.4-5.0); Anion Gap 3 (5-15); Blood Urea Nitrogen 14 mg/dL (7-18); Calcium 8.6 mg/dL (8.5-10.1); Carbon Dioxide 26 mmol/L (21-32); Chloride 111 mmol/L (98-107); Glucose 84 mg/dL (74-106); Magnesium 2.1 mg/dL (1.6-2.6); Potassium 4.1 mmol/L (3.5-5.1); Sodium 140 mmol/L (136-145)
[2020-01-06 23:17] LABS: Alanine Aminotransferase 35 U/L (16-61); Aspartate Aminotransferase 29 U/L (15-37); BUN/Creatinine Ratio 12.3; GFR African American 97 mL/min; GFR Non-African American 80 mL/min
[2020-01-06 23:22] LABS: Alkaline Phosphatase 98 U/L (45-117); Bilirubin, Total 0.5 mg/dL (0.2-1.0); Total Protein 7.6 g/dL (6.4-8.2)
[2020-01-07 00:55] VITALS: BP 136/84
== END 2020-01-06 21:57 | disposition home or self-care (01) ==
LOC: ER 21:36
DX: R10.13 Epigastric pain (principal); R06.02 Shortness of breath; N18.9 Chronic kidney disease, unspecified; Z79.899 Other long term (current) drug therapy
CPT/HCPCS: 36415; 71046; 80053; 83735; 84443; 84484; 85025; 85610; 85730; 93005